=== PATIENT | female | born 1940 | race Caucasian/White ===

== ENCOUNTER → 2018-01-21 14:56 | Outpatient (CLI) | payer MEDICARE, OTHER, SELFPAY ==
[2018-01-21 15:26] LABS: INR 3.2 (1.0-3.5); Prothrombin Time 29.6 sec (9.3-10.8)
== END ==
PROVIDERS: PCP Nurse Practitioner Family; Visit Provider Nurse Practitioner Family
DX: I48.0 Paroxysmal atrial fibrillation (principal); Z79.01 Long term (current) use of anticoagulants
CPT/HCPCS: 36415; 85610

== ENCOUNTER → 2018-01-28 07:01 | Outpatient (CLI) | payer MEDICARE, OTHER, SELFPAY ==
[2018-01-28 07:58] LABS: INR 3.3 (1.0-3.5); Prothrombin Time 31.3 sec (9.3-10.8)
== END ==
PROVIDERS: PCP Nurse Practitioner Family; Visit Provider Nurse Practitioner Family
DX: I48.0 Paroxysmal atrial fibrillation (principal); Z79.01 Long term (current) use of anticoagulants
CPT/HCPCS: 36415; 85610

== ENCOUNTER → 2018-02-04 07:16 | Outpatient (CLI) | payer MEDICARE, OTHER, SELFPAY ==
[2018-02-04 07:54] LABS: INR 3.1 (1.0-3.5); Prothrombin Time 28.9 sec (9.3-10.8)
== END ==
PROVIDERS: PCP Nurse Practitioner Family; Visit Provider Nurse Practitioner Family
DX: I48.0 Paroxysmal atrial fibrillation (principal); Z79.01 Long term (current) use of anticoagulants
CPT/HCPCS: 36415; 85610

== ENCOUNTER 2018-02-18 07:11 | Outpatient (CLI) | payer MEDICARE, OTHER, SELFPAY ==
[2018-02-18 08:20] LABS: INR 1.9 (1.0-3.5); Prothrombin Time 18.2 sec (9.3-10.8)
== END 2018-02-18 07:31 ==
PROVIDERS: PCP Nurse Practitioner Family; Visit Provider Nurse Practitioner Family
DX: I48.0 Paroxysmal atrial fibrillation (principal); Z79.01 Long term (current) use of anticoagulants
CPT/HCPCS: 36415; 85610

== ENCOUNTER 2018-02-26 06:56 | Outpatient (CLI) | payer MEDICARE, OTHER, SELFPAY ==
[2018-02-26 07:52] LABS: INR 2.6 (1.0-3.5); Prothrombin Time 24.6 sec (9.3-10.8)
== END 2018-02-26 07:16 ==
PROVIDERS: PCP Nurse Practitioner Family; Visit Provider Nurse Practitioner Family
DX: I48.0 Paroxysmal atrial fibrillation (principal); Z79.01 Long term (current) use of anticoagulants
CPT/HCPCS: 36415; 85610

== ENCOUNTER 2018-03-26 10:48 | Outpatient (CLI) | payer MEDICARE, OTHER, SELFPAY ==
[2018-03-26 11:41] LABS: INR 2.2 (1.0-3.5); Prothrombin Time 21.2 sec (9.3-10.8)
== END 2018-03-26 11:08 ==
PROVIDERS: PCP Nurse Practitioner Family; Visit Provider Nurse Practitioner Family
DX: I48.0 Paroxysmal atrial fibrillation (principal); Z79.01 Long term (current) use of anticoagulants
CPT/HCPCS: 36415; 85610

== ENCOUNTER 2018-04-24 14:42 | Outpatient (CLI) | payer MEDICARE, OTHER, SELFPAY ==
[2018-04-24 16:16] LABS: INR 2.5 (1.0-3.5); Prothrombin Time 23.5 sec (9.3-10.8)
== END 2018-04-24 15:02 ==
PROVIDERS: PCP Nurse Practitioner Family; Visit Provider Nurse Practitioner Family
DX: I48.0 Paroxysmal atrial fibrillation (principal); Z79.01 Long term (current) use of anticoagulants
CPT/HCPCS: 36415; 85610

== ENCOUNTER 2018-04-29 15:29 | Outpatient (CLI) | payer MEDICARE, OTHER, SELFPAY ==
[2018-04-29 16:18] LABS: TSH 4.83 uIU/mL (0.358-3.74)
[2018-04-30 14:59] LABS: FREE T4 1.01 ng/dL (0.76-1.46)
== END 2018-04-29 15:49 ==
PROVIDERS: PCP Nurse Practitioner Family; Visit Provider Radiology Radiation Oncology
DX: E03.9 Hypothyroidism, unspecified (principal)
CPT/HCPCS: 36415; 84439; 84443

== ENCOUNTER 2018-09-27 10:57 | Outpatient (CLI) | payer MEDICARE, OTHER, SELFPAY ==
[2018-09-27 11:31] LABS: INR 2.5 (0.9-1.1); Prothrombin Time 25.7 sec (9.3-11.0)
[2018-09-27 12:39] LABS: FREE T4 1.31 ng/dL (0.76-1.46); TSH 2.14 uIU/mL (0.358-3.74)
== END 2018-09-27 11:17 ==
PROVIDERS: PCP Nurse Practitioner Family; Visit Provider Nurse Practitioner Family
DX: E03.9 Hypothyroidism, unspecified (principal); I48.0 Paroxysmal atrial fibrillation; Z79.01 Long term (current) use of anticoagulants
CPT/HCPCS: 36415; 84439; 84443; 85610

== ENCOUNTER 2018-10-28 15:39 | Outpatient (CLI) | payer MEDICARE, OTHER, SELFPAY ==
[2018-10-28 16:21] LABS: Prothrombin Time 20.2 sec (9.3-11.0)
[2018-10-28 17:20] LABS: BUN 20 mg/dL (7-18); CREATININE 1.02 mg/dL (0.55-1.02); Chloride 103 mmol/L (98-107); Cholesterol 139 mg/dL (50-200); Estimated GFR 52.14 (mL/min/1.73m2); Glucose 85 mg/dL (70-100); HDL Cholesterol 44 mg/dL (40-60); LDL CHOLESTEROL 78 mg/dL (<100); Potassium 3.8 mmol/L (3.5-5.1); Sodium 141 mmol/L (136-145); Triglyceride 76 mg/dL (30-150)
== END 2018-10-28 15:59 ==
PROVIDERS: PCP Nurse Practitioner Family; Visit Provider Nurse Practitioner Family
DX: E78.5 Hyperlipidemia, unspecified (principal); I48.0 Paroxysmal atrial fibrillation; Z79.01 Long term (current) use of anticoagulants
CPT/HCPCS: 36415; 80048; 80061; 83721; 85610

== ENCOUNTER 2018-11-20 14:53 | Observation (INO) | payer MEDICARE, OTHER, SELFPAY ==
[2018-11-20] VITALS (13 sets, daily range): BP systolic 136–177; BP diastolic 68–102; PULSE 55–69; RESP 14–21; TEMP 36.5–36.6; O2SAT 96–98
--- NOTE | 2018-11-20 16:00 | DI.RAD_ITS ---
SYMPTOM/DIAGNOSIS: PAIN, FALL LEFT LEG: Two views. No acute fracture or dislocation is present
--- NOTE | 2018-11-20 16:00 | DI.CT_ITS ---
SYMPTOM/DIAGNOSIS: FALL, COUMADIN CT BRAIN: Noncontrast examination. Comparison 01/02/18 The ventricle and sulci are consistent with the patient's age. There is small vessel ischemic disease. No acute intracranial infarct, hemorrhage, midline shift or mass effect is identified. The visualized paranasal sinuses are clear. The mastoid air cells are well pneumatized. The calvarium is intact. There is a left frontal scalp hematoma. IMPRESSION: No acute intracranial process. 2. Small moderate size left frontal scalp hematoma.
--- NOTE | 2018-11-20 16:02 | W.ED.GENAD ---
Discharge Plan Disposition Patient Disposition: HOME Discharge Details Chief Complaint: HeadInjury Clinical Impression: Fall, Head injury, Abrasion of left leg Primary Care Provider: Quin Angel ED Provider: Rommel Sullivan Home Meds and New Rx's Prescriptions: Continued losartan 50 mg tablet 50 mg PO DAILY Qty: 90 RF: 4 metoprolol tartrate 25 mg tablet 12.5 mg PO BID Qty: 90 RF: 4 simvastatin 20 mg tablet 20 mg PO DAILY Qty: 90 RF: 4 LINDSEY MAG ZINC + D TABLET 1 EACH tablet 1 ea PO DAILY RF: 0 levothyroxine [Synthroid] 50 mcg tablet 50 mcg PO DAILY Qty: 90 RF: 4 levothyroxine 25 mcg tablet 12.5 mcg PO DAILY Qty: 45 RF: 4 No Action warfarin 2.5 mg tablet 2.5 mg PO As Directed MDD 10mg/day Qty: 180 RF: 4 Discharge Instructions Referrals: Quin Angel, FIELD TRAFFIC INVESTIGATOR [Primary Care Provider] - Medical Decision Making 78-year-old female with history of atrial fibrillation on Coumadin here after mechanical fall with head trauma. Patient is hemodynamically stable. Heart rate within normal limits. Neurologically intact. Cervical spine is nontender with no pain on full range of motion. Considered acute life-threatening intracranial traumatic hemorrhage. CT of the head interpreted by radiology: No acute intracranial abnormality. Changes of an acute infarct may not be visible on CT from 224 to 48 hours. Labs reviewed and INR is elevated at 1.8 but this is in subtherapeutic range for her atrial fibrillation. Also with trauma to her left lower extremity. Considered fracture. X-ray interpreted by radiology is no acute findings. Patient does have abrasion to the area which was irrigated with copious sterile saline by nursing and myself, bacitracin applied and sterile dressing applied. Patient developed frontal headache 6/10 while here in the emergency department. She was given Tylenol 650 mg and headache has improved but is still present. On reassessment she remained neurologically intact. I called and spoke with Dr. Michelle duval who will admit the patient for observation and possible repeat imaging. HPI General Mode of arrival: ambulatory. Date/Time Provider Initiated Documentation: 11/20/18 15:20. Limitations to Documentation: no limitations. Information obtained by: patient. HPI Narrative: 78-year-old female history of atrial fibrillation on Coumadin here after mechanical fall, tripped over a hose, striking her head on the ground and also injuring her left lower leg. Her chief complaint is head trauma. She has a contusion with swelling of her left forehead. She denies loss of consciousness. No neck pain. No numbness or weakness. No visual changes. No nausea or vomiting. No headache at this time. She notes that she scraped her left leg but does not believe she significantly injured it. Related Data Home Medications Medication Instructions Recorded Confirmed Lindsey Mag Zinc + D Tablet 1 ea PO DAILY 10/03/17 11/20/18 losartan 50 mg tablet 50 mg PO DAILY #90 tab-cap 18 11/20/18 metoprolol tartrate 25 mg tablet 12.5 mg PO BID #90 tab-cap 04/02/18 11/20/18 simvastatin 20 mg tablet 20 mg PO DAILY #90 tab-cap 04/02/18 11/20/18 warfarin 2.5 mg tablet 2.5 mg PO As Directed #180 tab-cap 04/02/18 11/20/18 MDD 10mg/day levothyroxine 25 mcg tablet 12.5 mcg PO DAILY #45 tab 11/05/18 11/20/18 levothyroxine 50 mcg tablet 50 mcg PO DAILY #90 tab-cap 11/05/18 11/20/18 Previous Rx's Medication Instructions Recorded losartan 50 mg tablet 50 mg PO DAILY #90 tab-cap 04/02/18 metoprolol tartrate 25 mg tablet 12.5 mg PO BID #90 tab-cap 04/02/18 simvastatin 20 mg tablet 20 mg PO DAILY #90 tab-cap 04/02/18 warfarin 2.5 mg tablet 2.5 mg PO As Directed #180 tab-cap 04/02/18 MDD 10mg/day levothyroxine 25 mcg tablet 12.5 mcg PO DAILY #45 tab 11/05/18 levothyroxine 50 mcg tablet 50 mcg PO DAILY #90 tab-cap 11/05/18 Allergies Allergy/AdvReac Type Severity Reaction Status Date / Time No Known Allergies Allergy Unverified 11/20/18 15:07 General Stated Complaint: HeadInjury THELMA: 3 Review of Systems Review of Systems All systems reviewed & are unremarkable except as noted in HPI and below [facility] Medical History PAF (paroxysmal atrial fibrillation) (Chronic 2016) Chronic anticoagulation (Inactive) Hypertension (Chronic) Chronic kidney disease (Chronic) Hyperlipidemia (Chronic) Hypothyroidism (Chronic 03/05/17) LBBB (left bundle branch block) (Inactive 11/29/15) Osteoporosis (Inactive) Sensorineural hearing loss (SNHL), bilateral (Inactive) Sigmoid diverticulosis (Inactive) Squamous cell carcinoma of neck (Inactive ~09/2015) Surgical History Cholecystectomy (Inactive ~1988) Colonoscopy - MAC (Inactive ~2009) Dilation and curettage (Inactive ~1977) Hysterectomy, Laproscopic (Inactive ~1978) Ligation of fallopian tube (Inactive ~1967) Skin Cancer Removal (Inactive 12/15/15) Family History Mother Essential hypertension Father Alcohol abuse Sister No problems noted. Sister No problems noted. Brother No problems noted. Brother No problems noted. Brother Epilepsy Brother No problems noted. Son No problems noted. Son No problems noted. Son No problems noted. Daughter No problems noted. Maternal Grandfather No problems noted. Maternal Grandmother Chronic obstructive lung disease Essential hypertension Paternal Grandfather No problems noted. Paternal Grandmother No problems noted. Social History Smoking/Tobacco Use Status: Never Second Hand Exposure: Yes (Prior to 2007) Alcohol Intake: current Alcohol Intake frequency: a few times a month Drug use: Never Substance use type: does not use Caregiver/Support person: No Household members: none Communication Needs: Hard of Hearing Pets and animals: No Sexually active: No Do you think of yourself as: straight/heterosexual Current gender identity: female What is your relationship status?: How often do you talk on the phone with friends or family?: three or more times per week How often do you get together with friends or relatives?: three or more times per week How often do you attend pentecostal or religion services?: 4 or more times per year Do you belong to any clubs or organized social groups?: no Panel score (0-1 are the most socially isolated patients): 2 What type of physical activity do you participate in: walking and swimming Duration: 45-60 minutes/day Frequency: 5-6 times per week Malia/Cheondoism: Scientology Special malia needs: No Seatbelt use: always Drive intox or ride w/intox hazardous materials tanker driver: No Do you feel safe in your relationship?: Yes Female Reproductive History Menstrual Menopause type: surgical History History 4 Para 4 Hx # Term Pregnancies Multiple births Hx # Pregnancies Ectopic pregnancies AB induced Hx Number of Living Children 4 AB spontaneous Exam Const General: cooperative and no acute distress HENMT Head: no Guthrie's sign, hematoma left frontal, no palpable skull fracture and No periorbital ecchymosis Ears: TM normal on the left General nose exam: external nose normal Mouth: moist mucous membranes Eyes Conjunctivae: normal conjunctivae Sclera: normal sclerae EOM: EOM intact bilaterally Neck Neck: full ROM, trachea midline, supple, no midline deformity and nontender Resp Auscultation: clear to auscultation bilaterally, no rales, no rhonchi and no wheezes Cardio Jugular venous pressure: no JVD Rate: regular rate and not tachycardic Rhythm: regular rhythm GI Palpation: soft, not firm, no guarding, no masses, not rigid and nontender Back/Spine/Pelvis Pelvis: no pain with anterior-posterior compression and no pain with lateral compression Skin General skin exam: no rashes or lesions noted Neuro General: alert, awake, oriented x3 and tone normal Cranial Nerves: CN's II-XI intact bilaterally Cognition: normal cognition Speech: speech normal Gait: normal gait Motor: muscle tone normal throughout Sensory Exam: no sensory deficits noted Extrem General: no edema Left lower extremity: lower leg Details: tenderness Location: of the proximal tibia Psych Appearance: grossly normal Mental Status: mental status grossly normal Speech and Movement: speech and movement normal Course Vital Signs Temperature 36.6 C 11/20/18 15:04 Pulse 69 11/20/18 15:04 Respiratory Rate 16 11/20/18 15:04 Blood Pressure 136/73 11/20/18 15:04 Pulse Oximetry 98 11/20/18 15:04 Temperature 36.6 C 11/20/18 15:04 Temperature Source Skin 11/20/18 15:04 Pulse 69 11/20/18 15:04 Respiratory Rate 16 11/20/18 15:04 Respiratory Effort Non-Labored 11/20/18 15:28 Respiratory Depth Normal 11/20/18 15:28 Respiratory Pattern Normal 11/20/18 15:28 Blood Pressure 136/73 11/20/18 15:04 Blood Pressure Position Supine 11/20/18 15:04 Pulse Oximetry 98 11/20/18 15:04 Oxygen Delivery Method Room Air 11/20/18 15:04 Oxygen Flow Rate 0 11/20/18 15:04 Pain Level 0 11/20/18 15:04
[2018-11-20 16:37] LABS: INR 1.8 (0.9-1.1); Prothrombin Time 18.5 sec (9.3-11.0)
[2018-11-20] MEDS: Acetaminophen 325 MG TAB 650 MG PO (17:10)
--- NOTE | 2018-11-20 17:12 | DI.VRAD_ITS ---
EXAM: XR Left Tibia and Fibula EXAM DATE/TIME: 11/20/2018 4:02 PM CLINICAL HISTORY: 78 years old, female; Injury or trauma; Fall; Initial encounter; Abrasion and blunt trauma; Lower leg; Left; Right TECHNIQUE: Imaging protocol: XR Left tibia and fibula. Views: 2 views. COMPARISON: No relevant prior studies available. FINDINGS: Bones/joints: Normal. Soft tissues: Normal. IMPRESSION: No acute findings. Dictated and Authenticated by: Raza Chi MD. Ordering:ADELA Carney MD
--- NOTE | 2018-11-20 17:24 | DI.VRAD_ITS ---
EXAM: CT Head Without Contrast EXAM DATE/TIME: 11/20/2018 4:02 PM CLINICAL HISTORY: 78 years old, female; Injury or trauma; Fall TECHNIQUE: Imaging protocol: Axial computed tomography images of the head without contrast. Coronal and sagittal reformatted images were created and reviewed. COMPARISON: CT HEAD AND CSPINE W/O CONTRAST 01/12/2018 1:52 PM FINDINGS: Brain: Mild small vessel ischemic changes in the periventricular white matter. No evidence of an acute cortical infarct. Ventricles: Normal. No ventriculomegaly. Bones/joints: Unremarkable. No acute fracture. Sinuses: Visualized sinuses are unremarkable. No fluid levels. Mastoid air cells: Visualized mastoid air cells are well aerated. No mastoid effusion. Soft tissues: Left frontal soft tissue swelling. IMPRESSION: No acute intracranial abnormality. Changes of an acute infarct may not be visible on CT for up to 24 to 48 hours. Dictated and Authenticated by: Raza Chi MD. Ordering:ADELA Carney MD
--- NOTE | 2018-11-20 17:52 | ED.GENADUL_ITS ---
Discharge Plan Disposition Patient Disposition: HOME Discharge Details Chief Complaint: HeadInjury Clinical Impression: Fall, Head injury, Abrasion of left leg Primary Care Provider: Quin Angel ED Provider: Rommel Sullivan Home Meds and New Rx's Prescriptions: Continued losartan 50 mg tablet 50 mg PO DAILY Qty: 90 RF: 4 metoprolol tartrate 25 mg tablet 12.5 mg PO BID Qty: 90 RF: 4 simvastatin 20 mg tablet 20 mg PO DAILY Qty: 90 RF: 4 LINDSEY MAG ZINC + D TABLET 1 EACH tablet 1 ea PO DAILY RF: 0 levothyroxine [Synthroid] 50 mcg tablet 50 mcg PO DAILY Qty: 90 RF: 4 levothyroxine 25 mcg tablet 12.5 mcg PO DAILY Qty: 45 RF: 4 No Action warfarin 2.5 mg tablet 2.5 mg PO As Directed MDD 10mg/day Qty: 180 RF: 4 Discharge Instructions Referrals: Quin Angle, SULKY DRIVER [Primary Care Provider] - Medical Decision Making 78-year-old female with history of atrial fibrillation on Coumadin here after mechanical fall with head trauma. Patient is hemodynamically stable. Heart rate within normal limits. Neurologically intact. Cervical spine is nontender with no pain on full range of motion. Considered acute life-threatening intracranial traumatic hemorrhage. CT of the head interpreted by radiology: No acute intracranial abnormality. Changes of an acute infarct may not be visible on CT from 224 to 48 hours. Labs reviewed and INR is elevated at 1.8 but this is in subtherapeutic range for her atrial fibrillation. Also with trauma to her left lower extremity. Considered fracture. X-ray interpreted by radiology is no acute findings. Patient does have abrasion to the area which was irrigated with copious sterile saline by nursing and myself, bacitracin applied and sterile dressing applied. Patient developed frontal headache 6/10 while here in the emergency department. She was given Tylenol 650 mg and headache has improved but is still present. On reassessment she remained neurologically intact. I called and spoke with Dr. Michelle duval who will admit the patient for observation and possible repeat imaging. HPI General Mode of arrival: ambulatory . Date/Time Provider Initiated Documentation: 11/20/18 15:20 . Limitations to Documentation: no limitations . Information obtained by: patient . HPI Narrative: 78-year-old female history of atrial fibrillation on Coumadin here after mechanical fall, tripped over a hose, striking her head on the ground and also injuring her left lower leg. Her chief complaint is head trauma. She has a contusion with swelling of her left forehead. She denies loss of consciousness. No neck pain. No numbness or weakness. No visual changes. No nausea or vomiting. No headache at this time. She notes that she scraped her left leg but does not believe she significantly injured it. Related Data Home Medications Medication Instructions Recorded Confirmed Lindsey Mag Zinc + D Tablet 1 ea PO DAILY 10/03/17 11/20/18 losartan 50 mg tablet 50 mg PO DAILY #90 tab-cap 18 11/20/18 metoprolol tartrate 25 mg tablet 12.5 mg PO BID #90 tab-cap 04/02/18 11/20/18 simvastatin 20 mg tablet 20 mg PO DAILY #90 tab-cap 04/02/18 11/20/18 warfarin 2.5 mg tablet 2.5 mg PO As Directed #180 tab-cap 04/02/18 11/20/18 MDD 10mg/day levothyroxine 25 mcg tablet 12.5 mcg PO DAILY #45 tab 11/05/18 11/20/18 levothyroxine 50 mcg tablet 50 mcg PO DAILY #90 tab-cap 11/05/18 11/20/18 Previous Rx's Medication Instructions Recorded losartan 50 mg tablet 50 mg PO DAILY #90 tab-cap 04/02/18 metoprolol tartrate 25 mg tablet 12.5 mg PO BID #90 tab-cap 04/02/18 simvastatin 20 mg tablet 20 mg PO DAILY #90 tab-cap 04/02/18 warfarin 2.5 mg tablet 2.5 mg PO As Directed #180 tab-cap 04/02/18 MDD 10mg/day levothyroxine 25 mcg tablet 12.5 mcg PO DAILY #45 tab 11/05/18 levothyroxine 50 mcg tablet 50 mcg PO DAILY #90 tab-cap 11/05/18 Allergies Allergy/AdvReac Type Severity Reaction Status Date / Time No Known Allergies Allergy Unverified 11/20/18 15:07 General Stated Complaint: HeadInjury THELMA: 3 Review of Systems Review of Systems All systems reviewed & are unremarkable except as noted in HPI and below [facility] Medical History PAF (paroxysmal atrial fibrillation) (Chronic 2016) Chronic anticoagulation (Inactive) Hypertension (Chronic) Chronic kidney disease (Chronic) Hyperlipidemia (Chronic) Hypothyroidism (Chronic 03/05/17) LBBB (left bundle branch block) (Inactive 11/29/15) Osteoporosis (Inactive) Sensorineural hearing loss (SNHL), bilateral (Inactive) Sigmoid diverticulosis (Inactive) Squamous cell carcinoma of neck (Inactive ~09/2015) Surgical History Cholecystectomy (Inactive ~1988) Colonoscopy - MAC (Inactive ~2009) Dilation and curettage (Inactive ~1977) Hysterectomy, Laproscopic (Inactive ~1978) Ligation of fallopian tube (Inactive ~1967) Skin Cancer Removal (Inactive 12/15/15) Family History Mother Essential hypertension Father Alcohol abuse Sister No problems noted. Sister No problems noted. Brother No problems noted. Brother No problems noted. Brother Epilepsy Brother No problems noted. Son No problems noted. Son No problems noted. Son No problems noted. Daughter No problems noted. Maternal Grandfather No problems noted. Maternal Grandmother Chronic obstructive lung disease Essential hypertension Paternal Grandfather No problems noted. Paternal Grandmother No problems noted. Social History Smoking/Tobacco Use Status: Never Second Hand Exposure: Yes (Prior to 2007) Alcohol Intake: current Alcohol Intake frequency: a few times a month Drug use: Never Substance use type: does not use Caregiver/Support person: No Household members: none Communication Needs: Hard of Hearing Pets and animals: No Sexually active: No Do you think of yourself as: straight/heterosexual Current gender identity: female What is your relationship status?: How often do you talk on the phone with friends or family?: three or more times per week How often do you get together with friends or relatives?: three or more times per week How often do you attend islam or jew services?: 4 or more times per year Do you belong to any clubs or organized social groups?: no Panel score (0-1 are the most socially isolated patients): 2 What type of physical activity do you participate in: walking and swimming Duration: 45-60 minutes/day Frequency: 5-6 times per week Malia/Pentecostal: L[employer] Day Special malia needs: No Seatbelt use: always Drive intox or ride w/intox driver medic: No Do you feel safe in your relationship?: Yes Female Reproductive History Menstrual Menopause type: surgical History History 4 Para 4 Hx # Term Pregnancies Multiple births Hx # Pregnancies Ectopic pregnancies AB induced Hx Number of Living Children 4 AB spontaneous Exam Const General: cooperative and no acute distress HENMT Head: no Guthrie's sign, hematoma left frontal, no palpable skull fracture and No periorbital ecchymosis Ears: TM normal on the left General nose exam: external nose normal Mouth: moist mucous membranes Eyes Conjunctivae: normal conjunctivae Sclera: normal sclerae EOM: EOM intact bilaterally Neck Neck: full ROM, trachea midline, supple, no midline deformity and nontender Resp Auscultation: clear to auscultation bilaterally, no rales, no rhonchi and no wheezes Cardio Jugular venous pressure: no JVD Rate: regular rate and not tachycardic Rhythm: regular rhythm GI Palpation: soft, not firm, no guarding, no masses, not rigid and nontender Back/Spine/Pelvis Pelvis: no pain with anterior-posterior compression and no pain with lateral compression Skin General skin exam: no rashes or lesions noted Neuro General: alert, awake, oriented x3 and tone normal Cranial Nerves: CN's II-XI intact bilaterally Cognition: normal cognition Speech: speech normal Gait: normal gait Motor: muscle tone normal throughout Sensory Exam: no sensory deficits noted Extrem General: no edema Left lower extremity: lower leg Details: tenderness Location: of the proximal tibia Psych Appearance: grossly normal Mental Status: mental status grossly normal Speech and Movement: speech and movement normal Course Vital Signs Temperature 36.6 C 11/20/18 15:04 Pulse 69 11/20/18 15:04 Respiratory Rate 16 11/20/18 15:04 Blood Pressure 136/73 11/20/18 15:04 Pulse Oximetry 98 11/20/18 15:04 Temperature 36.6 C 11/20/18 15:04 Temperature Source Skin 11/20/18 15:04 Pulse 69 11/20/18 15:04 Respiratory Rate 16 11/20/18 15:04 Respiratory Effort Non-Labored 11/20/18 15:28 Respiratory Depth Normal 11/20/18 15:28 Respiratory Pattern Normal 11/20/18 15:28 Blood Pressure 136/73 11/20/18 15:04 Blood Pressure Position Supine 11/20/18 15:04 Pulse Oximetry 98 11/20/18 15:04 Oxygen Delivery Method Room Air 11/20/18 15:04 Oxygen Flow Rate 0 11/20/18 15:04 Pain Level 0 11/20/18 15:04
[2018-11-20] MEDS: Metoprolol 25 MG TAB 12.5 MG PO (20:03)
[2018-11-20] MEDS: Acetaminophen 325 MG TAB PO (20:06)
--- NOTE | 2018-11-20 20:50 | W.PM.HP.N ---
Date of service: 11/20/18 Time of Service: 20:50 Assessment and Plan (1) Closed head injury without loss of consciousness: Current visit: Yes Status: Acute patient sustained a mechanical fall w/out loss of consciousness and no skull fracture thus making the risk of a subdural hematoma less likely, nevertheless because of the subsequent headache to the fall; the patient should be closely monitored overnight w/ frequent VS and neurochecks. I have held her warfarin for tonight. She can resume her usual dose tomorrow if she remains neurologically stable. I have ordered repeat CT of her head for the a.m. per Dr. Sullivan's recommendation. If she developes worsening headaches, or nausea or other focal neurologic symptoms tonight, then I will repeat her CT tonight. I advised the patient on signs and symptoms of ICH and increased intracranial pressure and to report any symptoms immediately. Qualifiers: Encounter type: initial encounter Qualified Code(s): S09.90XA - Unspecified injury of head, initial encounter (2) Scalp contusion: Current visit: Yes Status: Acute local treatment w/ ice compresses. Qualifiers: Encounter type: initial encounter Qualified Code(s): S00.03XA - Contusion of scalp, initial encounter (3) Tick bite of left lower leg: Current visit: Yes Status: Acute patient showed me this incidental to her reasons for hospitalization. The insect bite appears to be pin point w/ no target or bull's eye appearance and no surrounding erythema or induration. As the tick was on her less than 24 hrs, there is no indication for doxycycline prophylaxis. However, I advised the patient to keep watch on the area and if there is increased redness or swelling or target like lesion then she should report this. Qualifiers: Encounter type: initial encounter Qualified Code(s): S80.862A - Insect bite (nonvenomous), left lower leg, initial encounter; W57.XXXA - Bitten or stung by nonvenomous insect and other nonvenomous arthropods, initial encounter (4) PAF (paroxysmal atrial fibrillation): Current visit: No Status: Chronic heart rate is regular but bradycardic in the 50's. She is on metoprolol chronically to control her afib rate. She did not have an EKG done in the ER and was not placed on telemetry. She has no symptoms of palpitations nor any syncope, therefore she is not being evaluated for her heart rhythm. She has known PAF and as she is on a BB, the bradycardia is not a surprise. Her warfarin is being held tonight d/t her closed head injury/scalp hematoma. I will repeat her INR tomorrow and if she remains neurologically intact and there is no change in her CT of her head then she can go back on her warfarin with close follow up of her INR. (5) Hypertension: Current visit: No Status: Chronic continue her losartan and her metoprolol. Qualifiers: Hypertension type: essential hypertension Qualified Code(s): I10 - Essential (primary) hypertension History of Present Illness Chief Complaint: fell, hit head Narrative: 78-year-old female with a history of essential hypertension, chronic atrial fibrillation on anticoagulation with warfarin presented to the emergency department brought here by her [id number] after the patient sustained a fall. Patient states that she tripped over sump pump drain hose that her son had placed to drain her pool in preparation for opening up her swimming pool for the summer season. Patient denies any loss of consciousness. Soon after the fall she did sustain a large bruise of her forehead and abrasion over her left adrian. She complained of a headache and was evaluated emergency department by Dr. Rommel Sullivan who performed CT scan of her head without contrast. CT of her head showed mild small vessel ischemic changes in the periventricular white matter but no evidence of acute intracranial abnormalities. She has a small left frontal soft tissue swelling. He also ordered an x-ray of her left tibia and fibula which showed no acute findings. He perform routine laboratory studies including a CBC that was normal prothrombin time which was elevated but below therapeutic levels with an INR 1.8. And routine chemistries that were unremarkable. Because of the complaints of headache she was treated with Tylenol which improved her headache but did not totally resolve it. Because of her being on anticoagulation and sustaining soft tissue trauma to her head Dr. Sullivan recommend observation overnight with frequent neuro checks to assess for any overnight development of a subdural bleed. He also recommend a repeat CT scan of her head in the morning. Patient denies any acute visual scotomata nor any paresthesias or paraparesis no nausea or emesis. Her headache after the fall she rated a 6 out of 10 in severity and was a severe ache but was improved with Tylenol. Since being admitted headache is gone down to a 3 out of 10 and his receive further Tylenol with improvement in her headache. Review of Systems Constitutional Reports system reviewed and no additional complaints, except as docu, Denies frequent falls, Reports headache(s) and Denies weakness ENT Denies dizziness, Reports headache(s) and Denies disequilibrium Cardiovascular Denies chest pain, Denies syncope, Denies lightheadedness, Denies palpitations and Denies dyspnea Respiratory Denies dyspnea Integumentary/Breasts Reports other (patient states she had a tick bite over left lower leg, present for <1day) Neurologic Denies confusion, Denies dizziness, Denies syncope, Denies frequent falls, Reports headache(s), Denies lack of coordination, Denies focal weakness, Denies other visual disturbances, Denies paresthesias, Denies disequilibrium and Denies weakness Psychiatric Denies confusion Endocrine Denies palpitations [facility] Medical History PAF (paroxysmal atrial fibrillation) (Chronic 2016) Chronic anticoagulation (Chronic) Hypertension (Chronic) Chronic kidney disease (Chronic) Hyperlipidemia (Chronic) Hypothyroidism (Chronic 03/05/17) LBBB (left bundle branch block) (Chronic 11/29/15) Osteoporosis (Chronic) Sensorineural hearing loss (SNHL), bilateral (Chronic) Sigmoid diverticulosis (Chronic) Squamous cell carcinoma of neck (Inactive ~09/2015) Surgical History Cholecystectomy (Inactive ~1988) Colonoscopy - MAC (Inactive ~2009) Dilation and curettage (Inactive ~1977) Hysterectomy, Laproscopic (Inactive ~1978) Ligation of fallopian tube (Inactive ~1967) Skin Cancer Removal (Inactive 12/15/15) Family History Mother Essential hypertension Father Alcohol abuse Sister No problems noted. Sister No problems noted. Brother No problems noted. Brother No problems noted. Brother Epilepsy Brother No problems noted. Son No problems noted. Son No problems noted. Son No problems noted. Daughter No problems noted. Maternal Grandfather No problems noted. Maternal Grandmother Chronic obstructive lung disease Essential hypertension Paternal Grandfather No problems noted. Paternal Grandmother No problems noted. Social History Smoking/Tobacco Use Status: Never Second Hand Exposure: Yes (Prior to 2007) Alcohol Intake: current Alcohol Intake frequency: a few times a month Drug use: Never Substance use type: does not use Caregiver/Support person: No Household members: none Communication Needs: Hard of Hearing Pets and animals: No Sexually active: No Do you think of yourself as: straight/heterosexual Current gender identity: female What is your relationship status?: How often do you talk on the phone with friends or family?: three or more times per week How often do you get together with friends or relatives?: three or more times per week How often do you attend taoist or episcopal services?: 4 or more times per year Do you belong to any clubs or organized social groups?: no Panel score (0-1 are the most socially isolated patients): 2 What type of physical activity do you participate in: walking and swimming Duration: 45-60 minutes/day Frequency: 5-6 times per week Malia/Uatsdin: [facility] Special malia needs: No Seatbelt use: always Drive intox or ride w/intox route sales delivery driver: No Do you feel safe in your relationship?: Yes Female Reproductive History Menstrual Menopause type: surgical History History 4 Para 4 Hx # Term Pregnancies Multiple births Hx # Pregnancies Ectopic pregnancies AB induced Hx Number of Living Children 4 AB spontaneous Meds Home Medications Medication Instructions Recorded Confirmed Type Jose Mag Zinc + D Tablet 1 ea PO DAILY 10/03/17 11/20/18 History losartan 50 mg tablet 50 mg PO DAILY #90 tab-cap 04/02/18 11/20/18 Rx metoprolol tartrate 25 mg tablet 12.5 mg PO BID #90 tab-cap 04/02/18 11/20/18 Rx simvastatin 20 mg tablet 20 mg PO DAILY #90 tab-cap 04/02/18 11/20/18 Rx warfarin 2.5 mg tablet 2.5 mg PO As Directed #180 tab-cap 04/02/18 11/20/18 Rx MDD 10mg/day levothyroxine 25 mcg tablet 12.5 mcg PO DAILY #45 tab 11/05/18 11/20/18 Rx levothyroxine 50 mcg tablet 50 mcg PO DAILY #90 tab-cap 11/05/18 11/20/18 Rx Allergies Allergy/AdvReac Type Severity Reaction Status Date / Time No Known Allergies Allergy Unverified 11/20/18 15:07 Exam Const General: cooperative, comfortable, no acute distress and well groomed Nutritional Appearance: average body habitus and well nourished Orientation: alert, awake and oriented x3 [facility] Head: no palpable skull fracture, normocephalic, abrasion left frontal, hematoma left frontal and No periorbital ecchymosis General nose exam: external nose normal, nares normal and no nasal discharge Eyes General: appearance normal, both eyes and all related structures Visual Thomas: normal visual thomas by confrontation Alignment and Position: alignment normal Periorbital: periorbital findings normal Eyelids: eyelids normal Conjunctivae: conjunctivae normal Sclera: sclerae normal Cornea: corneas normal Pupils: PERRL, normal by confrontation and accommodation normal EOM: EOM intact bilaterally Neck Neck: normal visual inspection, full ROM, no lymphadenopathy, trachea midline, supple and no JVD Thyroid: thyroid normal Carotids: normal carotid upstroke and no bruits Lymphatic: no lymphadenopathy noted Chest Chest: normal inspection of the chest and normal palpation of entire chest wall Resp Effort & Inspection: normal respiratory effort and able to speak in complete sentences Auscultation: clear to auscultation bilaterally Percussion: percussion normal Cardio Jugular venous pressure: no JVD Palpation: normal PMI Rate: bradycardic Rhythm: regular rhythm Heart Sounds: S1 normal, S2 normal and normal, physiologic split S2 Pulses: normal peripheral pulses GI Inspection: normal to inspection Palpation: soft, no hepatosplenomegaly and nontender Percussion: normal to percussion Auscultation: normal bowel sounds Back/Spine/Pelvis Cervical Spine: normal cervical lordosis and cervical ROM normal Thoracic/Lumbar Spine: thoracic and lumbar spine normal to inspection and thoraco-lumbar ROM normal Skin General skin exam: no rashes or lesions noted, elasticity normal and turgor normal Trauma: abrasion (left anterior tibia) Other: small pinpoint insect bite over left lower medial tibia, area that patient states was a tick bite Neuro General: alert, awake, oriented x3, moves all extremities and no focal motor deficits Cranial Nerves: CN's II-XI intact bilaterally, PERRL, accommodation normal, EOM intact bilaterally, no nystagmus, facial strength normal, tongue midline, gag reflex normal, hearing normal, able to rotate head bilaterally, able to elevate shoulders bilaterally and Symmetric palate elevation Cognition: normal cognition Speech: speech normal Gait: normal gait Motor: muscle tone normal throughout, strength 5/5 throughout, no movement abnormalities noted and no fasciculations Sensory Exam: no sensory deficits noted Extrem General: normal to inspection, full ROM, normal capillary refill, no joint enlargement, no clubbing, cyanosis or edema and no calf tenderness bilaterally Psych Appearance: grossly normal and well kempt Mental Status: mental status grossly normal Speech and Movement: speech and movement normal Mood: congruent mood Affect: normal affect Attitude: cooperative Thought Process: normal Thought Content: normal Insight: insight good Judgment: judgment good Results Labs Laboratory Results - last 24 hr 11/20/18 16:10 PT 18.5 H INR 1.8 H Last Vital Signs Temp 36.6 C 11/20/18 19:08 Pulse 55 L 11/20/18 19:08 Resp 18 11/20/18 19:08 BP 165/84 H 11/20/18 19:08 Pulse Ox 98 11/20/18 19:08
[2018-11-21] VITALS (8 sets, daily range): BP systolic 140–162; BP diastolic 78–88; PULSE 41–60; RESP 16–18; TEMP 36.9–37.2; O2SAT 97–99
[2018-11-21] MEDS: Levothyroxine 25 MCG TAB 12.5 MCG PO (06:10)
[2018-11-21] MEDS: Acetaminophen 325 MG TAB PO (06:10)
[2018-11-21] MEDS: Levothyroxine 50 MCG TAB PO (06:16)
--- NOTE | 2018-11-21 07:00 | DI.CT_ITS ---
SYMPTOM/DIAGNOSIS: CLOSED HEAD INJURY, FRONTAL HEMATOMA, HEADACHE CT BRAIN: Noncontrast. Comparison 11/20/18 No acute intracranial hemorrhage, midline shift or mass effect is identified. There is age appropriate cerebral atrophy and small vessel ischemic disease. There is again seen a scalp hematoma overlying the left frontal bone. No calvarial fracture is seen. The visualized paranasal sinuses remain clear. IMPRESSION: 1. No acute intracranial hemorrhage or skull fracture. 2. Left frontal scalp hematoma.
[2018-11-21 07:37] LABS: Prothrombin Time 18.6 sec (9.3-11.0)
[2018-11-21 07:42] LABS: INR 1.8 (0.9-1.1)
--- NOTE | 2018-11-21 09:30 | PDOC.CMIN ---
Care Management Initial Assess REASON FOR HOSPITALIZATION:: closed head injury without loss of consciousness, frontal hematoma. PAST MEDICAL HISTORY/PAST SURGICAL HISTORY:: Medical: chronic PAF, chronic anticoagulation, HTN, CKD, hyperlipidemia, hypothyroidism, LBBB, osteoporosis, sensorineural hearing loss, sigmoid diverticulosis, squamous cell carcinoma of neck. Surgical: cholecystectomy, colonoscopy, D&C, hysterectomy, ligation of fallopian tube, skin Ca removal. PREVIOUS FUNCTIONAL STATUS/SOCIAL/FAMILY SUPPORTS:: She is 78 yo who lives alone in her own home in [facility]. She spends about 4-5 months in [place] during the winter, and 6-7 months in [place] during other seasons. She has four adult children, 3 sons and a daughter, 7 grandchildren and 10 great grandchildren. She is usually very active and independent, and still drives some of time. CURRENT FUNCTIONAL STATUS:: She is able to ambulate in room with standby assist. No device needed. She easily engages in discussion re plans, and makes point to say she is very independent-minded woman. ADVANCE DIRECTIVES:: She has a document that names her daughter, Ema, as her agent. It is not on file at [facility], but she will make sure she brings a copy after d/c home. Has patient been provided with information about the portal?: Yes Did the patient sign up for the portal?: No INSURANCE COVERAGE / FINANCIAL ISSUES:: Medicare. Edith malloy Gardner CURRENT HOME/COMMUNITY SERVICES/EQUIPMENT:: No services or equipment used. PRIMARY CARE PHYSICIAN:: Quin Angel NP POTENTIAL DISCHARGE NEEDS:: She will need follow-up with PCP as directed. PATIENT/FAMILY EDUCATION NEEDS:: Review d/c instructions re meds and activity levels. Review Ask me Now questions. ANTICIPATED BARRIERS TO DISCHARGE:: none identified TRANSPORTATION:: via car with her daughter, Ema. PLAN:: d/c home as per MD, no services anticipated.
--- NOTE | 2018-11-21 10:31 | PHARADMIT ---
Admission Pharmacy Clinical Review closed head injury, frontal Code Status Full Code Current Weight Wgt- 69.2 kg Renally Cleared and Narrow Therapeutic Index Meds CrCl~ 39.5 mL/min Meds-OK QTc Value / Action Taken none current BP Control, Fever BP- 162/86 Tmax- 37C Electrolytes reviewed na DVT Prophylaxis Warfarin Held due to head injury Opiate Usage / Scheduled Bowel Regimen Ordered No Yes Plt/SCr for Heparin / Enoxaparin na INR for Warfarin inr-1.8 H/H stable, WBC/Bands na Antibiotic appropriateness none Cultures and Sensitivities na Surgical ABX d/c within 24 hr na DM control / Insulin Dosing NA Heart Failure (Check EF%) (MARTIN's, B-Block, Diuretics) Losartan, Lopressor IV to PO Switch No Home Meds Reviewed Yes Home Meds Not Ordered Ca,Mag,Zinc, Lasix, Warfarin Comments
[2018-11-21 11:46] LABS: Abs Immature Grans 0.01 k/cumm (0.0-0.09); Absolute Basophil Count 0.08 k/cumm (0.0-0.2); Absolute Eosinophil Count 0.17 k/cumm (0.0-0.7); Absolute Lymphocyte Count 1.14 k/cumm (1.2-3.4); Absolute Monocyte Count 0.54 k/cumm (0.11-0.7); Absolute Neutrophil Count 3.21 k/cumm (1.2-6.7); Basophils % 1.6; Eosinophils % 3.3; HCT 37.7 % (36.0-46.0); HGB 12.3 g/dL (12.0-15.5); Immature Grans % 0.2; Lymphocytes % 22.1; Mean Corp. HGB Concentration 32.6 g/dL (32.0-36.0); Mean Corpuscular Hemoglobin 30.6 pg (27.0-33.0); Mean Corpuscular Volume 93.8 fL (80-95); Mean Platelet Volume 10.1 fL (8.0-11.0); Monocytes % 10.5; Neutrophils % 62.3; Platelet Count 239 x1000/uL (130-400); RBC 4.02 m/cumm (4.00-5.20); RBC Distribution Width 12.9 % (11.7-14.6); White Blood Cell Count 5.15 k/cumm (4.4-10.8)
[2018-11-21 11:56] LABS: Anion Gap 6.8 mmol/L (3-11); BUN 17 mg/dL (7-18); CO2 29.2 mmol/L (21.0-32.0); CREATININE 0.96 mg/dL (0.55-1.02); Calcium 8.1 mg/dL (8.5-10.1); Chloride 105 mmol/L (98-107); Estimated GFR 55.92 (mL/min/1.73m2); Glucose 105 mg/dL (70-100); Magnesium 2.1 mg/dL (1.8-2.4); Potassium 4.1 mmol/L (3.5-5.1); Sodium 141 mmol/L (136-145)
[2018-11-21 12:12] LABS: Troponin I < 0.02 ng/mL (0.00-0.06)
--- NOTE | 2018-11-21 12:16 | IN_ITS ---
Date of service: 11/21/18 Time of Service: 11:45 PT Notes Inpatient Physical Therapy Evaluation Date: 11/21/18 Referring Doctor: Dr. Fitzpatrick PT Orders: PT CONSULT: s/p fall- eval and treat Precautions: fall, standard Patient Profile/Admitting Diagnosis: Patient admitted 11/20/18 after mechanical fall at home without LOC. PMHX: PAF (paroxysmal atrial fibrillation) (Chronic 2016) Chronic anticoagulation (Chronic) Hypertension (Chronic) Chronic kidney disease (Chronic) Hyperlipidemia (Chronic) Hypothyroidism (Chronic 03/05/17) LBBB (left bundle branch block) (Chronic 11/29/15) Osteoporosis (Chronic) Sensorineural hearing loss (SNHL), bilateral (Chronic) Sigmoid diverticulosis (Chronic) Squamous cell carcinoma of neck (Inactive ~09/2015) Social History/Home Situation: Patient lives in single level home with a flight of stairs to her basement, which she states that she does not use regularly. She is an avid walker, typically walking 2 miles per day. She king in [place], and typically swims daily. Equipment Owned/DME: none Subjective: Patria states that she is feeling fine. She's anxious to be released home. She states that her fall occurred while she was trying to operate a sump pump, and she tripped over a large pipe in her yard. Only previous fall was 2 years ago when a porch swing broke as she sat down to it. Objective: General Observation: Resting in bed. No lines. Mental Status: A&Ox3. Pleasant and conversant. Pain: denies ROM: Right Upper Extremity: WFL Left Upper Extremity: WFL Right Lower Extremity: WFL Left Lower Extremity: WFL Strength: Right Upper Extremity: Grossly WFL Left Upper Extremity: Grossly WFL Right Lower Extremity: Hip flexion 5/5. Quads 5/5. Hamstrings 5/5. Ankle DF 5/5. Left Lower Extremity: Hip flexion 5/5. Quads 5/5. Hamstrings 5/5. Ankle DF 5/5. Bed Mobility/Transfers: supine-sit: independent sit-supine: independent sit-stand: independent stand-sit: independent Gait: Patient ambulates 400' with supervision and without assistive device. No gait impairments or losses of balance noted. Balance: Static Sitting: Normal Dynamic Sitting: Normal Static Standing: Normal Dynamic Standing: Normal Special Tests: 4-Position balance test is 4/4 (0% deficit) Mobility Limitations Standardized Measure [facility] AM-PAC 6 clicks Basic Mobility Inpatient Short Form: Raw Score: 24 CMS Score: 0% deficit Informed Consent/Education: Patient instructed in purpose of PT consult and plan of care. Assessment: Patient is a 78 year old female referred to physical therapy services with the diagnosis of s/p fall- eval and treat. Patient presents with reports of mechanical fall, without signs of underlying balance impairment. Her mobility is at baseline, and she is safe to return home once medically stable. No further PT required in acute care setting. Patient is assessed as Low [id number] complexity based on the following: History: 78 year old female admitted on observation status after fall at home Examination: patient is functioning at baseline Presentation: stable Decision Making: low Goals: Plan of Care/Treatment Plan: Discharge from PT services in acute care setting. DISCHARGE RECOMMENDATIONS: home, without anticipated equipment needs or services TREATMENT CODE/TIME: 11:45-12:10 ([id number]) Octavia Avila, PT, DPT [facility]
[2018-11-21 12:18] LABS: TSH 3.32 uIU/mL (0.358-3.74)
--- NOTE | 2018-11-21 13:05 | OTIE_ITS ---
Occupational Therapy Notes Inpatient Occupational Therapy Evaluation Date: 11/21/18 Referring Doctor:Carline Fitzpatrick MD OT Orders: Eval and Treat Precautions: Standard PATIENT PROFILE/ADMITTING DIAGNOSIS: Pt is an 78- year old female admitted through the ER s/p a mechanical fall without LOC. Past Medical History: PAF (paroxysmal atrial fibrillation) (Chronic 2016) Chronic anticoagulation (Chronic) Hypertension (Chronic) Chronic kidney disease (Chronic) Hyperlipidemia (Chronic) Hypothyroidism (Chronic 03/05/17) LBBB (left bundle branch block) (Chronic 11/29/15) Osteoporosis (Chronic) Sensorineural hearing loss (SNHL), bilateral (Chronic) Sigmoid diverticulosis (Chronic) Squamous cell carcinoma of neck (Inactive ~09/2015) Social History/Home Situation: Pt lives alone in a private home. She has a very supportive family and is totally (I) at baseline for ADLs/IADLs. Equipment owned/DME: None SUBJECTIVE: Pt was sitting in chair with her daughter present in the room. She reports that she would like to go home. OBJECTIVE: General Observation: Pleasant and answers questions appropriately Mental Status: A&Ox3 Pain: no c/o pain ROM: RUE AROM WNL throughout L UE AROM WNL throughout STRENGTH: RUE 5/5 throughout globally LUE 5/5 throughout globally FUNCTIONAL MOBILITY/ADLS: Transfers Sit-Stand (I) Stand-sit (I) Bathroom-Chair (I) Chair-Bathroom (I) BATHING (I) with functional ROM able to cross midline and perform with ideal technique for UE, LE NT. DRESSING Dressing LE (I) don and doff (B) socks in seated position. GROOMING (I) brushing teeth, standing at the sink. TOILETING NT EATING NT BALANCE: Static sitting Normal Dynamic Sitting Normal Static Standing Normal Dynamic Standing Normal SPECIAL TESTS: Daily Activity Limitations Standardized Measure [facility] AM -PAC ?6 clicks? Daily Activity Inpatient Short Form: Raw score: 24 CMS score: 0.00% INFORMED CONSENT/EDUCATION: Pt instructed in purpose of OT Consult and plan of care. ASSESSMENT: Patient is an 78 -year-old female referred to occupational therapy services with diagnosis of s/p mechanical fall without LOC. Patient presents with clinical signs and symptoms consistent with dx. Pt was seen for OT consult only. She functionally is totally (I) with all ADLs/IADLs at this time. OT recommends that pt return home when medically cleared per MD with no DME needed. AMPAC score 24, CMS 0.00% Patient is assessed as a Low 21666 complexity based on the following: History: See Above Examination: See Above Presentation: Stable Decision Making: AMPAC score 24, CMS 0.00% GOALS N/A PLAN OF CARE/TREATMENT PLAN: OT consult only. DISCHARGE RECOMMENDATIONS Home with no DME needed. TREATMENT TIME/MINUTES/CODES [id number], 15 minutes (10:50) Lisa Hooks OTR/L [facility]
--- NOTE | 2018-11-21 14:02 | W.PM.DS.N ---
Date of service: 11/21/18 Time of Service: 14:03 DS: Diagnosis Discharge Diagnosis (1) Closed head injury without loss of consciousness: Status: Acute (2) Scalp contusion: Status: Acute (3) Tick bite of left lower leg: Status: Acute (4) PAF (paroxysmal atrial fibrillation): Status: Chronic (5) Hypertension: Status: Chronic (6) LBBB (left bundle branch block): Status: Chronic (7) Chronic kidney disease: Status: Chronic (8) Hyperlipidemia: Status: Chronic (9) Hypothyroidism: Status: Chronic (10) Bradycardia: Status: Acute Discharge Plan Disposition Patient Disposition: HOME Condition: Stable Discharge Details Reason For Visit: CLOSED HEAD INJURY, FRONTAL HEMATOMA Admit Date/Time: 11/20/18 18:09 Admit Provider: Aamir Martinez Attending Provider: Aamir Martinez Primary Care Provider: Quin Angel Hospital Course Hospital Course: Ms Austin is an 78 year old female with PMHx of paroxysmal Afib, on anticoagulation with coumadin, hypertension, hyperlipidemia, hypothyroidism, observed on [facility] hospitalist service overnight from 11/20/18 to 11/21/18 after a fall resulting in L scalp hematoma. She did not have any presyncopal prodromal symptoms prior to her fall, and her fall was thought to be purely mechanical. She did not, for that reason, undergo ischemic workup. Neurologically, her status remained intact. The appearance of scalp hematoma improved with her anticoagulation on hold. Importantly, this morning her heart rate was noted to be 41 (auscultated). She does take metoprolol 25 mg PO BID - she is instructed to take her pulse at home and hold it if her heart rate is below 50. She is asymptomatic of this bradycardia. She is being asked to keep an HR log and take it to her PCP for follow up to help guide further decisions. Finally, we feel it would be prudent for the patient to go home with a cardiac event recorder. She is medically stable for discharge home today with follow up with her PCP and off of anticoagulation until cleared to resume it by PCP. Additionally, PCP is asked to follow up on tick studies drawn at [facility] for a report of a tick bite recently - the patient is not being discharged with antibiotics. Home Meds and New Rx's Prescriptions: New acetaminophen [Tylenol] 325 mg Tablet 650 mg PO Q4H PRN PRNQty: 0 RF: 0 Continued losartan 50 mg tablet 50 mg PO DAILY Qty: 90 RF: 4 simvastatin 20 mg tablet 20 mg PO DAILY Qty: 90 RF: 4 LINDSEY MAG ZINC + D TABLET 1 EACH tablet 1 ea PO DAILY RF: 0 levothyroxine [Synthroid] 50 mcg tablet 50 mcg PO DAILY Qty: 90 RF: 4 levothyroxine 25 mcg tablet 12.5 mcg PO DAILY Qty: 45 RF: 4 metoprolol tartrate 25 mg tablet 12.5 mg PO BID Qty: 90 RF: 4 Discontinued warfarin 2.5 mg tablet 2.5 mg PO As Directed MDD 10mg/day Qty: 180 RF: 4 Discharge Instructions Instructions: Concussion (DC), Contusion in Adults (DC) Additional Instructions: Return to the hospital with worsening hematoma, if you have a headache uncontrolled with tylenol, fever, bleeding, chest pain, or shortness of breath. Follow up with your PCP as below. Measure your heart rate before taking metoprolol - skip the dose if the heart rate is below 60. Keep a log of your heart rates and take it to your PCP. Stand Alone Forms: Nursing Discharge Form Referrals: Quin Angel NP [Primary Care Provider] - 11/28/18 8:20 am Activity:: Activity as Tolerated Equipment/Supplies:: No Equipment Needed Diet:: As Tolerated Discharge Orders Discharge Orders: Discharge Order (Routine); Ordered 11/21/18 Ordered By: Carline Fitzpatrick Other Ambulatory Orders: Cardiac Event Recorder (Outpt) (ONCE) Location: Determined by Patient Ordered By: Carline Fitzpatrick Exam Narrative Exam Narrative: General: Elderly female, sitting up in bed, NAD, A&ox3 HEENT: L sided scalp and facial hematoma, EOMI, MMM Heart: irregularly irregular rhythm Lungs: CTAB GI: abdomen is soft, nontender, nondistended Extremities: no e/c/c BLE's, 2+ pedal pulses B DS: Data Vitals/I&O Vitals and I&O: Vital Signs Temperature 37.2 C 11/21/18 11:35 Temperature Source Tympanic 11/21/18 11:35 Pulse 46 L 11/21/18 11:35 Pulse Rhythm Irregular 11/21/18 08:07 Pulse 66 11/20/18 16:10 Respiratory Rate 18 11/21/18 11:35 Respiratory Effort Non-Labored 11/21/18 08:07 Respiratory Depth Normal 11/21/18 08:07 Respiratory Pattern Normal 11/21/18 08:07 Blood Pressure 145/78 H 11/21/18 11:35 Blood Pressure Mean 87 11/20/18 16:01 Blood Pressure Position Supine 11/20/18 15:04 Pulse Oximetry 99 11/21/18 11:35 Oxygen Delivery Method Room Air 11/21/18 11:35 Oxygen Flow Rate 0 11/21/18 11:35 Pain Level 0 11/21/18 11:35 Intake & Output 11/20/18 11/21/18 11/21/18 23:59 11:59 23:59 Intake Total 300 / 300 Output Total 1200 / 1200 Balance -900 / -900 Weight 68.039 kg 69.2 kg Intake: Oral 300 / 300 Output: Urine 1200 / 1200 Other: Urine Color Yellow Urine Appearance Clear Clear Urine Odor Normal Voiding Methods Toilet Completed studies during hospitalization [Text1]: XR tib/fib LLE 11/20/18: No acute fracture or dislocation is present CT brain 11/20/18: No acute intracranial process. 2. Small moderate size left frontal scalp hematoma. CT head 11/21/18: 1. No acute intracranial hemorrhage or skull fracture. 2. Left frontal scalp hematoma. Pending studies at discharge: Tick panel Labs on day of discharge: Labs from last 24 hours 11/21/18 11/21/18 11/21/18 11:30 11:30 11:30 WBC RBC Hgb Hct MCV MCH MCHC RDW Plt Count MPV Immature Gran % Neutrophils % Lymphocytes % Monocytes % Eosinophils % Basophils % Absolute Neutrophils Absolute Lymphocytes Absolute Monocytes Absolute Eosinophils Absolute Basophils PT INR Sodium Potassium Chloride Carbon Dioxide Anion Gap BUN Creatinine Estimated GFR/1.73 m2 Glucose Calcium Magnesium Troponin I < 0.02 TSH 3.32 A.phagocytophil DNA PCR Pending B. divergens/MO-1 PCR Pending Babesia duncani (PCR) Pending Babesia microti DNA PCR Pending Borrelia (PCR) Pending Lyme Disease Antibody Pending E.chaffeensis DNA (PCR) Pending E.ewingii/canis DNA PCR Pending E. muris-like DNA (PCR) Pending 11/21/18 11/21/18 11/21/18 11:30 11:30 06:20 WBC 5.15 RBC 4.02 Hgb 12.3 Hct 37.7 MCV 93.8 MCH 30.6 MCHC 32.6 RDW 12.9 Plt Count 239 MPV 10.1 Immature Gran % 0.2 Neutrophils % 62.3 Lymphocytes % 22.1 Monocytes % 10.5 Eosinophils % 3.3 Basophils % 1.6 Absolute Neutrophils 3.21 Absolute Lymphocytes 1.14 L Absolute Monocytes 0.54 Absolute Eosinophils 0.17 Absolute Basophils 0.08 PT 18.6 H INR 1.8 H Sodium 141 Potassium 4.1 Chloride 105 Carbon Dioxide 29.2 Anion Gap 6.8 BUN 17 Creatinine 0.96 Estimated GFR/1.73 m2 55.92 Glucose 105 H Calcium 8.1 L Magnesium 2.1 Troponin I TSH A.phagocytophil DNA PCR B. divergens/MO-1 PCR Babesia duncani (PCR) Babesia microti DNA PCR Borrelia (PCR) Lyme Disease Antibody E.chaffeensis DNA (PCR) E.ewingii/canis DNA PCR E. muris-like DNA (PCR) 11/20/18 16:10 WBC RBC Hgb Hct MCV MCH MCHC RDW Plt Count MPV Immature Gran % Neutrophils % Lymphocytes % Monocytes % Eosinophils % Basophils % Absolute Neutrophils Absolute Lymphocytes Absolute Monocytes Absolute Eosinophils Absolute Basophils PT 18.5 H INR 1.8 H Sodium Potassium Chloride Carbon Dioxide Anion Gap BUN Creatinine Estimated GFR/1.73 m2 Glucose Calcium Magnesium Troponin I TSH A.phagocytophil DNA PCR B. divergens/MO-1 PCR Babesia duncani (PCR) Babesia microti DNA PCR Borrelia (PCR) Lyme Disease Antibody E.chaffeensis DNA (PCR) E.ewingii/canis DNA PCR E. muris-like DNA (PCR) [facility] Medical History PAF (paroxysmal atrial fibrillation) (Chronic 2016) Chronic anticoagulation (Chronic) Hypertension (Chronic) Chronic kidney disease (Chronic) Hyperlipidemia (Chronic) Hypothyroidism (Chronic 03/05/17) LBBB (left bundle branch block) (Chronic 11/29/15) Osteoporosis (Chronic) Sensorineural hearing loss (SNHL), bilateral (Chronic) Sigmoid diverticulosis (Chronic) Squamous cell carcinoma of neck (Inactive ~09/2015) Surgical History Cholecystectomy (Inactive ~1988) Colonoscopy - MAC (Inactive ~2009) Dilation and curettage (Inactive ~1977) Hysterectomy, Laproscopic (Inactive ~1978) Ligation of fallopian tube (Inactive ~1967) Skin Cancer Removal (Inactive 12/15/15) Family History Mother Essential hypertension Father Alcohol abuse Sister No problems noted. Sister No problems noted. Brother No problems noted. Brother No problems noted. Brother Epilepsy Brother No problems noted. Son No problems noted. Son No problems noted. Son No problems noted. Daughter No problems noted. Maternal Grandfather No problems noted. Maternal Grandmother Chronic obstructive lung disease Essential hypertension Paternal Grandfather No problems noted. Paternal Grandmother No problems noted. Social History Smoking/Tobacco Use Status: Never Second Hand Exposure: Yes (Prior to 2007) Alcohol Intake: current Alcohol Intake frequency: a few times a month Drug use: Never Substance use type: does not use Caregiver/Support person: No Household members: none Communication Needs: Hard of Hearing Pets and animals: No Sexually active: No Do you think of yourself as: straight/heterosexual Current gender identity: female What is your relationship status?: How often do you talk on the phone with friends or family?: three or more times per week How often do you get together with friends or relatives?: three or more times per week How often do you attend gnosticist or sabianism services?: 4 or more times per year Do you belong to any clubs or organized social groups?: no Panel score (0-1 are the most socially isolated patients): 2 What type of physical activity do you participate in: walking and swimming Duration: 45-60 minutes/day Frequency: 5-6 times per week Malia/Latter-Day: Jew Special malia needs: No Seatbelt use: always Drive intox or ride w/intox chuck wagon driver: No Do you feel safe in your relationship?: Yes Female Reproductive History Menstrual Menopause type: surgical History History 4 Para 4 Hx # Term Pregnancies Multiple births Hx # Pregnancies Ectopic pregnancies AB induced Hx Number of Living Children 4 AB spontaneous
--- NOTE | 2018-11-21 14:08 | DSE_ITS ---
Date of service: 11/21/18 Time of Service: 14:03 DS: Diagnosis Discharge Diagnosis (1) Closed head injury without loss of consciousness: Status: Acute (2) Scalp contusion: Status: Acute (3) Tick bite of left lower leg: Status: Acute (4) PAF (paroxysmal atrial fibrillation): Status: Chronic (5) Hypertension: Status: Chronic (6) LBBB (left bundle branch block): Status: Chronic (7) Chronic kidney disease: Status: Chronic (8) Hyperlipidemia: Status: Chronic (9) Hypothyroidism: Status: Chronic (10) Bradycardia: Status: Acute Discharge Plan Disposition Patient Disposition: HOME Condition: Stable Discharge Details Reason For Visit: CLOSED HEAD INJURY, FRONTAL HEMATOMA Admit Date/Time: 11/20/18 18:09 Admit Provider: Aamir Martinez Attending Provider: Aamir Martinez Primary Care Provider: Quin Angel Hospital Course Hospital Course: Ms Austin is an 78 year old female with PMHx of paroxysmal Afib, on anticoagulation with coumadin, hypertension, hyperlipidemia, hypothyroidism, observed on [facility] hospitalist service overnight from 11/20/18 to 11/21/18 after a fall resulting in L scalp hematoma. She did not have any presyncopal prodromal symptoms prior to her fall, and her fall was thought to be purely mechanical. She did not, for that reason, undergo ischemic workup. Neurologically, her status remained intact. The appearance of scalp hematoma improved with her anticoagulation on hold. Importantly, this morning her heart rate was noted to be 41 (auscultated). She does take metoprolol 25 mg PO BID - she is instructed to take her pulse at home and hold it if her heart rate is below 50. She is asymptomatic of this bradycardia. She is being asked to keep an HR log and take it to her PCP for follow up to help guide further decisions. Finally, we feel it would be prudent for the patient to go home with a cardiac event recorder. She is medically stable for discharge home today with follow up with her PCP and off of anticoagulation until cleared to resume it by PCP. Additionally, PCP is asked to follow up on tick studies drawn at [facility] for a report of a tick bite recently - the patient is not being discharged with antibiotics. Home Meds and New Rx's Prescriptions: New acetaminophen [Tylenol] 325 mg Tablet 650 mg PO Q4H PRN PRNQty: 0 RF: 0 Continued losartan 50 mg tablet 50 mg PO DAILY Qty: 90 RF: 4 simvastatin 20 mg tablet 20 mg PO DAILY Qty: 90 RF: 4 LINDSEY MAG ZINC + D TABLET 1 EACH tablet 1 ea PO DAILY RF: 0 levothyroxine [Synthroid] 50 mcg tablet 50 mcg PO DAILY Qty: 90 RF: 4 levothyroxine 25 mcg tablet 12.5 mcg PO DAILY Qty: 45 RF: 4 metoprolol tartrate 25 mg tablet 12.5 mg PO BID Qty: 90 RF: 4 Discontinued warfarin 2.5 mg tablet 2.5 mg PO As Directed MDD 10mg/day Qty: 180 RF: 4 Discharge Instructions Instructions: Concussion (DC), Contusion in Adults (DC) Additional Instructions: Return to the hospital with worsening hematoma, if you have a headache uncontrolled with tylenol, fever, bleeding, chest pain, or shortness of breath. Follow up with your PCP as below. Measure your heart rate before taking metoprolol - skip the dose if the heart rate is below 60. Keep a log of your heart rates and take it to your PCP. Stand Alone Forms: Nursing Discharge Form Referrals: Quin Angel NP [Primary Care Provider] - 11/28/18 8:20 am Activity:: Activity as Tolerated Equipment/Supplies:: No Equipment Needed Diet:: As Tolerated Discharge Orders Discharge Orders: Discharge Order (Routine); Ordered 11/21/18 Ordered By: Carline Fitzpatrick Other Ambulatory Orders: Cardiac Event Recorder (Outpt) (ONCE) Location: Determined by Patient Ordered By: Carline Fitzpatrick Exam Narrative Exam Narrative: General: Elderly female, sitting up in bed, NAD, A&ox3 HEENT: L sided scalp and facial hematoma, EOMI, MMM Heart: irregularly irregular rhythm Lungs: CTAB GI: abdomen is soft, nontender, nondistended Extremities: no e/c/c BLE's, 2+ pedal pulses B DS: Data Vitals/I&O Vitals and I&O: Vital Signs Temperature 37.2 C 11/21/18 11:35 Temperature Source Tympanic 11/21/18 11:35 Pulse 46 L 11/21/18 11:35 Pulse Rhythm Irregular 11/21/18 08:07 Pulse 66 11/20/18 16:10 Respiratory Rate 18 11/21/18 11:35 Respiratory Effort Non-Labored 11/21/18 08:07 Respiratory Depth Normal 11/21/18 08:07 Respiratory Pattern Normal 11/21/18 08:07 Blood Pressure 145/78 H 11/21/18 11:35 Blood Pressure Mean 87 11/20/18 16:01 Blood Pressure Position Supine 11/20/18 15:04 Pulse Oximetry 99 11/21/18 11:35 Oxygen Delivery Method Room Air 11/21/18 11:35 Oxygen Flow Rate 0 11/21/18 11:35 Pain Level 0 11/21/18 11:35 Intake & Output 11/20/18 11/21/18 11/21/18 23:59 11:59 23:59 Intake Total 300 / 300 Output Total 1200 / 1200 Balance -900 / -900 Weight 68.039 kg 69.2 kg Intake: Oral 300 / 300 Output: Urine 1200 / 1200 Other: Urine Color Yellow Urine Appearance Clear Clear Urine Odor Normal Voiding Methods Toilet Completed studies during hospitalization [Text1]: XR tib/fib LLE 11/20/18: No acute fracture or dislocation is present CT brain 11/20/18: No acute intracranial process. 2. Small moderate size left frontal scalp hematoma. CT head 11/21/18: 1. No acute intracranial hemorrhage or skull fracture. 2. Left frontal scalp hematoma. Pending studies at discharge: Tick panel Labs on day of discharge: Labs from last 24 hours 11/21/18 11/21/18 11/21/18 11:30 11:30 11:30 WBC RBC Hgb Hct MCV MCH MCHC RDW Plt Count MPV Immature Gran % Neutrophils % Lymphocytes % Monocytes % Eosinophils % Basophils % Absolute Neutrophils Absolute Lymphocytes Absolute Monocytes Absolute Eosinophils Absolute Basophils PT INR Sodium Potassium Chloride Carbon Dioxide Anion Gap BUN Creatinine Estimated GFR/1.73 m2 Glucose Calcium Magnesium Troponin I < 0.02 TSH 3.32 A.phagocytophil DNA PCR Pending B. divergens/MO-1 PCR Pending Babesia duncani (PCR) Pending Babesia microti DNA PCR Pending Borrelia (PCR) Pending Lyme Disease Antibody Pending E.chaffeensis DNA (PCR) Pending E.ewingii/canis DNA PCR Pending E. muris-like DNA (PCR) Pending 11/21/18 11/21/18 11/21/18 11:30 11:30 06:20 WBC 5.15 RBC 4.02 Hgb 12.3 Hct 37.7 MCV 93.8 MCH 30.6 MCHC 32.6 RDW 12.9 Plt Count 239 MPV 10.1 Immature Gran % 0.2 Neutrophils % 62.3 Lymphocytes % 22.1 Monocytes % 10.5 Eosinophils % 3.3 Basophils % 1.6 Absolute Neutrophils 3.21 Absolute Lymphocytes 1.14 L Absolute Monocytes 0.54 Absolute Eosinophils 0.17 Absolute Basophils 0.08 PT 18.6 H INR 1.8 H Sodium 141 Potassium 4.1 Chloride 105 Carbon Dioxide 29.2 Anion Gap 6.8 BUN 17 Creatinine 0.96 Estimated GFR/1.73 m2 55.92 Glucose 105 H Calcium 8.1 L Magnesium 2.1 Troponin I TSH A.phagocytophil DNA PCR B. divergens/MO-1 PCR Babesia duncani (PCR) Babesia microti DNA PCR Borrelia (PCR) Lyme Disease Antibody E.chaffeensis DNA (PCR) E.ewingii/canis DNA PCR E. muris-like DNA (PCR) 11/20/18 16:10 WBC RBC Hgb Hct MCV MCH MCHC RDW Plt Count MPV Immature Gran % Neutrophils % Lymphocytes % Monocytes % Eosinophils % Basophils % Absolute Neutrophils Absolute Lymphocytes Absolute Monocytes Absolute Eosinophils Absolute Basophils PT 18.5 H INR 1.8 H Sodium Potassium Chloride Carbon Dioxide Anion Gap BUN Creatinine Estimated GFR/1.73 m2 Glucose Calcium Magnesium Troponin I TSH A.phagocytophil DNA PCR B. divergens/MO-1 PCR Babesia duncani (PCR) Babesia microti DNA PCR Borrelia (PCR) Lyme Disease Antibody E.chaffeensis DNA (PCR) E.ewingii/canis DNA PCR E. muris-like DNA (PCR) [facility] Medical History PAF (paroxysmal atrial fibrillation) (Chronic 2016) Chronic anticoagulation (Chronic) Hypertension (Chronic) Chronic kidney disease (Chronic) Hyperlipidemia (Chronic) Hypothyroidism (Chronic 03/05/17) LBBB (left bundle branch block) (Chronic 11/29/15) Osteoporosis (Chronic) Sensorineural hearing loss (SNHL), bilateral (Chronic) Sigmoid diverticulosis (Chronic) Squamous cell carcinoma of neck (Inactive ~09/2015) Surgical History Cholecystectomy (Inactive ~1988) Colonoscopy - MAC (Inactive ~2009) Dilation and curettage (Inactive ~1977) Hysterectomy, Laproscopic (Inactive ~1978) Ligation of fallopian tube (Inactive ~1967) Skin Cancer Removal (Inactive 12/15/15) Family History Mother Essential hypertension Father Alcohol abuse Sister No problems noted. Sister No problems noted. Brother No problems noted. Brother No problems noted. Brother Epilepsy Brother No problems noted. Son No problems noted. Son No problems noted. Son No problems noted. Daughter No problems noted. Maternal Grandfather No problems noted. Maternal Grandmother Chronic obstructive lung disease Essential hypertension Paternal Grandfather No problems noted. Paternal Grandmother No problems noted. Social History Smoking/Tobacco Use Status: Never Second Hand Exposure: Yes (Prior to 2007) Alcohol Intake: current Alcohol Intake frequency: a few times a month Drug use: Never Substance use type: does not use Caregiver/Support person: No Household members: none Communication Needs: Hard of Hearing Pets and animals: No Sexually active: No Do you think of yourself as: straight/heterosexual Current gender identity: female What is your relationship status?: How often do you talk on the phone with friends or family?: three or more times per week How often do you get together with friends or relatives?: three or more times per week How often do you attend taoist or orthodox services?: 4 or more times per year Do you belong to any clubs or organized social groups?: no Panel score (0-1 are the most socially isolated patients): 2 What type of physical activity do you participate in: walking and swimming Duration: 45-60 minutes/day Frequency: 5-6 times per week Malia/Rastafari: [employer] Special malia needs: No Seatbelt use: always Drive intox or ride w/intox charter coach driver: No Do you feel safe in your relationship?: Yes Female Reproductive History Menstrual Menopause type: surgical History History 4 Para 4 Hx # Term Pregnancies Multiple births Hx # Pregnancies Ectopic pregnancies AB induced Hx Number of Living Children 4 AB spontaneous
--- NOTE | 2018-11-21 15:50 | PDOC.CMDIS ---
LACE Index Scoring Tool - Questions: Length of Stay (in days): 2 Acuity (Admit via E.D.?): Yes Comorbidities: Mild Liver/Renal Disease E.D. Visits: 1 - Answers: Total Score: 8 Risk of Readmission: Low Risk Care Management Discharge Reason for Hospitalization: closed head injury without loss of consciousness, frontal hematoma. Discharge Plan: she is being discharged home to follow-up with her PCP. Family is transporting. Patient/Family Education Needs: RN to review d/c instructions re meds, monitoring of HR and activity levels. Patient able to verbalize reason for being here.
[2018-11-23 13:55] LABS: Anaplasma phagocytophilum Negative (Negative); B. miyamotoi PCR Negative (Negative); Babesia divergens/MO-1 Negative (Negative); Babesia duncani Negative (Negative); Babesia microti Negative (Negative); Ehrlichia chaffeensis Negative (Negative); Ehrlichia ewingii/canis Negative (Negative); Ehrlichia muris eauclairensis Negative (Negative)
[2018-11-24 11:08] LABS: Lyme Ab w Rflx to Lyme Confirm Negative
--- NOTE | 2018-12-31 13:02 | CER_ITS ---
PREVENTICE REPORT DATE OF INTERPRETATION: December 31, 2018 FINDINGS: The patient was monitored for 8 days and 23 hours. The baseline rhythm was sinus rhythm with interventricular conduction delay. Average heart rate 66 bpm, range 52-106 bpm. Rare ectopy. No tachyarrhythmias. No pauses greater than 3 seconds. No high degree heart block. One patient event which correlated with sinus rhythm at 51 bpm. FINAL INTERPRETATION: No significant tachy or bradyarrhythmias.
== END 2018-11-21 16:17 | disposition home or self-care (01) ==
LOC: ER 18:38 → MS 18:41
PROVIDERS: Admitting Provider Internal Medicine; Emergency Provider Student in an Organized Health Care Education/Training Program; PCP Nurse Practitioner Family; Visit Provider Internal Medicine
DX: S09.90XA Unspecified injury of head, initial encounter (principal); S00.03XA Contusion of scalp, initial encounter; S80.812A Abrasion, left lower leg, initial encounter; W01.10XA Fall on same level from slipping, tripping and stumbling with subsequent striking against unspecified object, initial encounter; S80.862A Insect bite (nonvenomous), left lower leg, initial encounter; W57.XXXA Bitten or stung by nonvenomous insect and other nonvenomous arthropods, initial encounter; I48.0 Paroxysmal atrial fibrillation; Z79.01 Long term (current) use of anticoagulants; R00.1 Bradycardia, unspecified; I12.9 Hypertensive chronic kidney disease with stage 1 through stage 4 chronic kidney disease, or unspecified chronic kidney disease; N18.9 Chronic kidney disease, unspecified; I44.7 Left bundle-branch block, unspecified; E03.9 Hypothyroidism, unspecified
CPT/HCPCS: 36415; 80048; 93270; 97161; 97165; 97535; 99217; 99219; 99285; 70450; 73590; 83735; 84443; 84484; 85025; 85610; 86618; 87798; 93005; 93010; 99284; G0378

== ENCOUNTER 2018-11-29 10:34 | Outpatient (CLI) | payer MEDICARE, OTHER, SELFPAY ==
[2018-11-29 11:01] LABS: Prothrombin Time 9.6 sec (9.3-11.0)
== END 2018-11-29 10:54 ==
PROVIDERS: PCP Nurse Practitioner Family; Visit Provider Nurse Practitioner Family
DX: I48.0 Paroxysmal atrial fibrillation (principal); Z79.01 Long term (current) use of anticoagulants
CPT/HCPCS: 36415; 85610

== ENCOUNTER 2018-11-30 13:04 | Emergency (ER) | payer MEDICARE, OTHER, SELFPAY ==
--- NOTE | 2018-11-30 13:08 | NUR.NOTE ---
Nursing Note: pt states that 10 days ago she fell wile walking outside catching her food on a hose. pt was brought to our ER and admitted over night for observation. since then the PT has had increasing back pain, lumba.[email or web address] 01/24 pain primary complain is back pain
[2018-11-30 13:11] VITALS: BP 132/88; PULSE 66; RESP 15; TEMP 37; O2SAT 95
--- NOTE | 2018-11-30 13:21 | W.ED.GENAD ---
Discharge Plan Disposition Patient Disposition: HOME Condition: Improving Discharge Details Chief Complaint: Nk/Back Pain Clinical Impression: Lumbar spine pain Primary Care Provider: Quin Angel ED Provider: Kacie Hong Home Meds and New Rx's Prescriptions: Continued losartan 50 mg tablet 50 mg PO DAILY Qty: 90 RF: 4 simvastatin 20 mg tablet 20 mg PO DAILY Qty: 90 RF: 4 LINDSEY MAG ZINC + D TABLET 1 EACH tablet 1 ea PO DAILY RF: 0 levothyroxine [Synthroid] 50 mcg tablet 50 mcg PO DAILY Qty: 90 RF: 4 levothyroxine 25 mcg tablet 12.5 mcg PO DAILY Qty: 45 RF: 4 acetaminophen [Tylenol] 325 mg Tablet 650 mg PO Q4H PRN PRNQty: 0 RF: 0 metoprolol tartrate 25 mg tablet 12.5 mg PO BID Qty: 90 RF: 4 warfarin 2.5 mg Tablet 2.5 mg PO DAILY RF: 0 Discharge Instructions Instructions: Low Back Strain (ED) Additional Instructions: Encourage hydration. Continue with Tylenol as needed for discomfort. You may use [id number] patches such as Lidoderm or salonpas patches to help with discomfort. Please keep upcoming appointment with primary care If you develop fever/chills, weakness, incontinence, altered sensation or other new/worsening symptoms please seek care urgently once again. Referrals: Quin Angel, PARAPROFESSIONAL AIDE TEACHER [Primary Care Provider] - Medical Decision Making Patient surjit 78 year old female presenting today with c/c of back pain. Nehemias was seen here and admitted fo rhead injury 10 days ago she sustained from zepeda from standing height. Initially, patient did not have any back pain. States that she did not develop this pain until a few days after discharge but notes that pain has been increasing since. Pain is worse with flexion and extension movement. Denies weakness, no radiating pain, no incontinence. Denies fevers/chills. No injury since this fall. Patient is point tender along lumbar spine, particularly from L1-L3, made worse with flexion. Plan to obtain CT to evaluate. She has been doing well with Tylenol and topical creams, will use Lidoderm patch. CT reviewed by radiologist. No evidence of bony abnormality on thoracic or lumbar spine. They do note diffuse degenerative spurring. Note that the paraspinal soft tissues are unremarkable. Also notes diffuse interstitial lung disease. Discussed these findings with the patient. Encourage hydration. Advised frequent ambulation and gentle stretching. Advised against any heavy lifting while pain persists. She has an upcoming appointment this week with her primary care. She is given strict return precautions. All other questions and concerns were addressed and she is plan. She knows that this is not acutely fractured, she feels that she will be able to manage her pain well at home HPI General Mode of arrival: ambulatory. Date/Time Provider Initiated Documentation: 11/30/18 13:21. Limitations to Documentation: no limitations. Information obtained by: patient and RN notes reviewed. History of Present Illness 78 year old F presents to the emergency department with the chief complaint of back pain, described as moderate, with intensity rated at 8. Quality is described as sharp, and is localized to the back (lumbar). Patient reports no radiation. Patient started experiencing this day(s) (10days) and it has been constant (worsening with time). Medication improves symptom(s), (tylenol and topical therapy) Movement worsens symptoms . Patient notes denies chest pain, cough, fever/chills, nausea/vomiting, rash and weakness. Patient did receive the following treatments prior to arrival, none Related Data Home Medications Medication Instructions Recorded Confirmed Lindsey Mag Zinc + D Tablet 1 ea PO DAILY 10/03/17 11/30/18 losartan 50 mg tablet 50 mg PO DAILY #90 tab-cap 04/02/18 11/30/18 simvastatin 20 mg tablet 20 mg PO DAILY #90 tab-cap 04/02/18 11/30/18 levothyroxine 25 mcg tablet 12.5 mcg PO DAILY #45 tab 11/05/18 11/30/18 levothyroxine 50 mcg tablet 50 mcg PO DAILY #90 tab-cap 11/05/18 11/30/18 acetaminophen [Tylenol] 650 mg PO Q4H PRN PRN #0 tab 11/21/18 11/30/18 metoprolol tartrate 12.5 mg PO BID #90 tab-cap 11/21/18 11/30/18 warfarin 2.5 mg PO DAILY 11/30/18 11/30/18 Previous Rx's Medication Instructions Recorded losartan 50 mg tablet 50 mg PO DAILY #90 tab-cap 04/02/18 simvastatin 20 mg tablet 20 mg PO DAILY #90 tab-cap 04/02/18 levothyroxine 25 mcg tablet 12.5 mcg PO DAILY #45 tab 11/05/18 levothyroxine 50 mcg tablet 50 mcg PO DAILY #90 tab-cap 11/05/18 acetaminophen [Tylenol] 650 mg PO Q4H PRN PRN #0 tab 11/21/18 metoprolol tartrate 12.5 mg PO BID #90 tab-cap 11/21/18 Allergies Allergy/AdvReac Type Severity Reaction Status Date / Time No Known Allergies Allergy Unverified 11/30/18 13:13 General Stated Complaint: Nk/Back Pain THELMA: 4 Review of Systems Constitutional Reports as per HPI, Denies chills, Denies fatigue, Denies fever(s), Denies headache(s) and Denies weakness ENT Denies headache(s) Cardiovascular Reports as per HPI, Denies chest pain and Denies dyspnea Respiratory Reports as per HPI, Denies cough and Denies dyspnea Gastrointestinal Reports as per HPI, Reports constipation and Denies fecal incontinence Genitourinary Denies urinary incontinence Musculoskeletal Reports as per HPI, Denies abnormal gait, Denies back pain and Denies tingling Integumentary/Breasts Reports as per HPI and Denies rash Neurologic Reports as per HPI, Denies abnormal gait, Denies headache(s), Denies focal weakness, Denies radicular pain, Denies sensory deficit, Denies tingling and Denies weakness Endocrine Denies fatigue [facility] Medical History PAF (paroxysmal atrial fibrillation) (Chronic 2016) Chronic anticoagulation (Chronic) Hypertension (Chronic) Chronic kidney disease (Chronic) Hyperlipidemia (Chronic) Hypothyroidism (Chronic 03/05/17) LBBB (left bundle branch block) (Chronic 11/29/15) Osteoporosis (Chronic) Sensorineural hearing loss (SNHL), bilateral (Chronic) Sigmoid diverticulosis (Chronic) Squamous cell carcinoma of neck (Inactive ~09/2015) Surgical History Cholecystectomy (Inactive ~1988) Colonoscopy - MAC (Inactive ~2009) Dilation and curettage (Inactive ~1977) Hysterectomy, Laproscopic (Inactive ~1978) Ligation of fallopian tube (Inactive ~1967) Skin Cancer Removal (Inactive 12/15/15) Social History (Reviewed 11/30/18 @ 13:44 by AMY Stockton Smoking/Tobacco Use Status: Never Second Hand Exposure: Yes (Prior to 2007) Alcohol Intake: current Alcohol Intake frequency: a few times a month Drug use: Never Substance use type: does not use Caregiver/Support person: No Household members: none Communication Needs: Hard of Hearing Pets and animals: No Sexually active: No Do you think of yourself as: straight/heterosexual Current gender identity: female What is your relationship status?: How often do you talk on the phone with friends or family?: three or more times per week How often do you get together with friends or relatives?: three or more times per week How often do you attend buddhism or yazdanism services?: 4 or more times per year Do you belong to any clubs or organized social groups?: no Panel score (0-1 are the most socially isolated patients): 2 What type of physical activity do you participate in: walking and swimming Duration: 45-60 minutes/day Frequency: 5-6 times per week Malia/Anabaptism: Judaism Special malia needs: No Seatbelt use: always Drive intox or ride w/intox hook up driver: No Do you feel safe at home: Yes Do you feel safe in your relationship?: Yes Female Reproductive History Menstrual Menopause type: surgical History History 4 Para 4 Hx # Term Pregnancies Multiple births Hx # Pregnancies Ectopic pregnancies AB induced Hx Number of Living Children 4 AB spontaneous Exam Const General: cooperative, healthy appearing, comfortable, no acute distress and well developed Nutritional Appearance: average body habitus and well nourished Orientation: alert and awake HENMT Head: normal to inspection Mouth: moist mucous membranes Resp Effort & Inspection: normal respiratory effort, able to speak in complete sentences and no respiratory distress Auscultation: clear to auscultation bilaterally, no rales, no rhonchi and no wheezes Cardio Rate: regular rate Rhythm: regular rhythm Heart Sounds: S1 normal and S2 normal Back/Spine/Pelvis Back: no CVA tenderness Cervical Spine: normal cervical lordosis and cervical ROM normal Thoracic/Lumbar Spine: No thoraco-lumbar ROM normal (limited forward flexion, pain in lumbar spine), straight leg raise negative bilaterally, No mass, pain with thoraco-lumbar ROM, No paraspinal tenderness, No thoraco-lumbar spasm, No thoracic spinal tenderness and lumbar spinal tenderness Pelvis: no pain with anterior-posterior compression Sacroiliac joints: bilaterally nontender Skin General skin exam: no rashes or lesions noted Trauma: no lacerations or abrasions Neuro General: alert, awake and oriented x3 Cognition: normal cognition Speech: speech normal Gait: normal gait Motor: muscle tone normal throughout, strength 5/5 throughout, no movement abnormalities noted and no fasciculations Sensory Exam: no sensory deficits noted (no saddle paresthesias) DTR's: Rt Patellar: 2+, Lt Patellar: 2+, Rt Ankle: 2+ and Lt Ankle: 2+ Extrem General: normal to inspection, full ROM, normal capillary refill, no pedal edema, no calf tenderness, normal gait and no calf tenderness bilaterally Psych Appearance: grossly normal and well kempt Mental Status: mental status grossly normal Speech and Movement: speech and movement normal Course Vital Signs Temperature 37.0 C 11/30/18 13:11 Pulse 66 11/30/18 13:11 Respiratory Rate 15 11/30/18 13:11 Blood Pressure 132/88 11/30/18 13:11 Pulse Oximetry 95 11/30/18 13:11 Temperature 37.0 C 11/30/18 13:11 Temperature Source Skin 11/30/18 13:11 Pulse 66 11/30/18 13:11 Respiratory Rate 15 11/30/18 13:11 Respiratory Effort 11/30/18 13:15 Blood Pressure 132/88 11/30/18 13:11 Blood Pressure Position Sitting 11/30/18 13:11 Pulse Oximetry 95 11/30/18 13:11 Oxygen Delivery Method Room Air 11/30/18 13:11 Oxygen Flow Rate 0 11/30/18 13:11 Pain Level 8 11/30/18 13:11
--- NOTE | 2018-11-30 13:34 | DI.CT_ITS ---
SYMPTOMS/DIAGNOSIS: UPPER AND LOWER BACK PAIN S/P FALL CT OF THE THORACIC SPINE: Comparison is made with December,. There is a stable mild fracture of the inferior endplate of T3. There is also mild compression of the superior endplate of T12. Degenerative disc changes are noted with anteriorly projecting osteophytes. There is no encroachment into the central canal or neural foramen. No paraspinal hematoma is seen. The aorta shows calcification and is tortuous. There are mild interstitial changes of the lungs. IMPRESSION: Stable old T3 compression fracture. Minimal compression of the T12 vertebral body. CT OF THE LUMBAR SPINE There is no evidence of an acute fracture. There are degenerative disc changes at L3-4 and L4-5, which are eccentric toward the right causing a degenerative scoliosis. There is left-sided narrowing of the L5-S1 disc and endplate osteophyte formation. IMPRESSION: Degenerative changes and scoliosis. No acute abnormality.
[2018-11-30] MEDS: Lidocaine 5% Patch 1 PATCH TP (13:47)
--- NOTE | 2018-11-30 13:50 | ED.GENADUL_ITS ---
Discharge Plan Disposition Patient Disposition: HOME Condition: Improving Discharge Details Chief Complaint: Nk/Back Pain Clinical Impression: Lumbar spine pain Primary Care Provider: Quin Angel ED Provider: Kacie Hong Home Meds and New Rx's Prescriptions: Continued losartan 50 mg tablet 50 mg PO DAILY Qty: 90 RF: 4 simvastatin 20 mg tablet 20 mg PO DAILY Qty: 90 RF: 4 LINDSEY MAG ZINC + D TABLET 1 EACH tablet 1 ea PO DAILY RF: 0 levothyroxine [Synthroid] 50 mcg tablet 50 mcg PO DAILY Qty: 90 RF: 4 levothyroxine 25 mcg tablet 12.5 mcg PO DAILY Qty: 45 RF: 4 acetaminophen [Tylenol] 325 mg Tablet 650 mg PO Q4H PRN PRNQty: 0 RF: 0 metoprolol tartrate 25 mg tablet 12.5 mg PO BID Qty: 90 RF: 4 warfarin 2.5 mg Tablet 2.5 mg PO DAILY RF: 0 Discharge Instructions Instructions: Low Back Strain (ED) Additional Instructions: Encourage hydration. Continue with Tylenol as needed for discomfort. You may use [id number] patches such as Lidoderm or salonpas patches to help with discomfort. Please keep upcoming appointment with primary care If you develop fever/chills, weakness, incontinence, altered sensation or other new/worsening symptoms please seek care urgently once again. Referrals: Quin Angel, PHYSICAL THERAPY AIDE [Primary Care Provider] - Medical Decision Making Patient surjit 78 year old female presenting today with c/c of back pain. Nehemias was seen here and admitted fo rhead injury 10 days ago she sustained from zepeda from standing height. Initially, patient did not have any back pain. States that she did not develop this pain until a few days after discharge but notes that pain has been increasing since. Pain is worse with flexion and extension movement. Denies weakness, no radiating pain, no incontinence. Denies fevers/chills. No injury since this fall. Patient is point tender along lumbar spine, particularly from L1-L3, made worse with flexion. Plan to obtain CT to evaluate. She has been doing well with Tylenol and topical creams, will use Lidoderm patch. CT reviewed by radiologist. No evidence of bony abnormality on thoracic or lumbar spine. They do note diffuse degenerative spurring. Note that the paraspinal soft tissues are unremarkable. Also notes diffuse interstitial lung disease. Discussed these findings with the patient. Encourage hydration. Advised frequent ambulation and gentle stretching. Advised against any heavy lifting while pain persists. She has an upcoming appointment this week with her primary care. She is given strict return precautions. All other questions and concerns were addressed and she is plan. She knows that this is not acutely fractured, she feels that she will be able to manage her pain well at home HPI General Mode of arrival: ambulatory . Date/Time Provider Initiated Documentation: 11/30/18 13:21 . Limitations to Documentation: no limitations . Information obtained by: patient and RN notes reviewed . History of Present Illness 78 year old F presents to the emergency department with the chief complaint of back pain, described as moderate, with intensity rated at 8. Quality is described as sharp, and is localized to the back (lumbar). Patient reports no radiation. Patient started experiencing this day(s) ( 10days) and it has been constant (worsening with time). Medication improves symptom(s), (tylenol and topical therapy) Movement worsens symptoms . Patient notes denies chest pain, cough, fever/chills, nausea/vomiting, rash and weakness. Patient did receive the following treatments prior to arrival, none Related Data Home Medications Medication Instructions Recorded Confirmed Lindsey Mag Zinc + D Tablet 1 ea PO DAILY 10/03/17 11/30/18 losartan 50 mg tablet 50 mg PO DAILY #90 tab-cap 04/02/18 11/30/18 simvastatin 20 mg tablet 20 mg PO DAILY #90 tab-cap 04/02/18 11/30/18 levothyroxine 25 mcg tablet 12.5 mcg PO DAILY #45 tab 11/05/18 11/30/18 levothyroxine 50 mcg tablet 50 mcg PO DAILY #90 tab-cap 11/05/18 11/30/18 acetaminophen [Tylenol] 650 mg PO Q4H PRN PRN #0 tab 11/21/18 11/30/18 metoprolol tartrate 12.5 mg PO BID #90 tab-cap 11/21/18 11/30/18 warfarin 2.5 mg PO DAILY 11/30/18 11/30/18 Previous Rx's Medication Instructions Recorded losartan 50 mg tablet 50 mg PO DAILY #90 tab-cap 04/02/18 simvastatin 20 mg tablet 20 mg PO DAILY #90 tab-cap 04/02/18 levothyroxine 25 mcg tablet 12.5 mcg PO DAILY #45 tab 11/05/18 levothyroxine 50 mcg tablet 50 mcg PO DAILY #90 tab-cap 11/05/18 acetaminophen [Tylenol] 650 mg PO Q4H PRN PRN #0 tab 11/21/18 metoprolol tartrate 12.5 mg PO BID #90 tab-cap 11/21/18 Allergies Allergy/AdvReac Type Severity Reaction Status Date / Time No Known Allergies Allergy Unverified 11/30/18 13:13 General Stated Complaint: Nk/Back Pain THELMA: 4 Review of Systems Constitutional Reports as per HPI, Denies chills, Denies fatigue, Denies fever(s), Denies headache(s) and Denies weakness ENT Denies headache(s) Cardiovascular Reports as per HPI, Denies chest pain and Denies dyspnea Respiratory Reports as per HPI, Denies cough and Denies dyspnea Gastrointestinal Reports as per HPI, Reports constipation and Denies fecal incontinence Genitourinary Denies urinary incontinence Musculoskeletal Reports as per HPI, Denies abnormal gait, Denies back pain and Denies tingling Integumentary/Breasts Reports as per HPI and Denies rash Neurologic Reports as per HPI, Denies abnormal gait, Denies headache(s), Denies focal weakness, Denies radicular pain, Denies sensory deficit, Denies tingling and Denies weakness Endocrine Denies fatigue [facility] Medical History PAF (paroxysmal atrial fibrillation) (Chronic 2016) Chronic anticoagulation (Chronic) Hypertension (Chronic) Chronic kidney disease (Chronic) Hyperlipidemia (Chronic) Hypothyroidism (Chronic 03/05/17) LBBB (left bundle branch block) (Chronic 11/29/15) Osteoporosis (Chronic) Sensorineural hearing loss (SNHL), bilateral (Chronic) Sigmoid diverticulosis (Chronic) Squamous cell carcinoma of neck (Inactive ~09/2015) Surgical History Cholecystectomy (Inactive ~1988) Colonoscopy - MAC (Inactive ~2009) Dilation and curettage (Inactive ~1977) Hysterectomy, Laproscopic (Inactive ~1978) Ligation of fallopian tube (Inactive ~1967) Skin Cancer Removal (Inactive 12/15/15) Social History (Reviewed 11/30/18 @ 13:44 by AMY Stockton Smoking/Tobacco Use Status: Never Second Hand Exposure: Yes (Prior to 2007) Alcohol Intake: current Alcohol Intake frequency: a few times a month Drug use: Never Substance use type: does not use Caregiver/Support person: No Household members: none Communication Needs: Hard of Hearing Pets and animals: No Sexually active: No Do you think of yourself as: straight/heterosexual Current gender identity: female What is your relationship status?: How often do you talk on the phone with friends or family?: three or more times per week How often do you get together with friends or relatives?: three or more times per week How often do you attend yazidi or baptist services?: 4 or more times per year Do you belong to any clubs or organized social groups?: no Panel score (0-1 are the most socially isolated patients): 2 What type of physical activity do you participate in: walking and swimming Duration: 45-60 minutes/day Frequency: 5-6 times per week Malia/Anabaptism: Latter-Day Special malia needs: No Seatbelt use: always Drive intox or ride w/intox electric truck driver: No Do you feel safe at home: Yes Do you feel safe in your relationship?: Yes Female Reproductive History Menstrual Menopause type: surgical History History 4 Para 4 Hx # Term Pregnancies Multiple births Hx # Pregnancies Ectopic pregnancies AB induced Hx Number of Living Children 4 AB spontaneous Exam Const General: cooperative, healthy appearing, comfortable, no acute distress and well developed Nutritional Appearance: average body habitus and well nourished Orientation: alert and awake HENMT Head: normal to inspection Mouth: moist mucous membranes Resp Effort & Inspection: normal respiratory effort, able to speak in complete sentences and no respiratory distress Auscultation: clear to auscultation bilaterally, no rales, no rhonchi and no wheezes Cardio Rate: regular rate Rhythm: regular rhythm Heart Sounds: S1 normal and S2 normal Back/Spine/Pelvis Back: no CVA tenderness Cervical Spine: normal cervical lordosis and cervical ROM normal Thoracic/Lumbar Spine: No thoraco-lumbar ROM normal (limited forward flexion, pain in lumbar spine), straight leg raise negative bilaterally, No mass, pain with thoraco-lumbar ROM, No paraspinal tenderness, No thoraco-lumbar spasm, No thoracic spinal tenderness and lumbar spinal tenderness Pelvis: no pain with anterior-posterior compression Sacroiliac joints: bilaterally nontender Skin General skin exam: no rashes or lesions noted Trauma: no lacerations or abrasions Neuro General: alert, awake and oriented x3 Cognition: normal cognition Speech: speech normal Gait: normal gait Motor: muscle tone normal throughout, strength 5/5 throughout, no movement abnormalities noted and no fasciculations Sensory Exam: no sensory deficits noted (no saddle paresthesias) DTR's: Rt Patellar: 2+, Lt Patellar: 2+, Rt Ankle: 2+ and Lt Ankle: 2+ Extrem General: normal to inspection, full ROM, normal capillary refill, no pedal edema, no calf tenderness, normal gait and no calf tenderness bilaterally Psych Appearance: grossly normal and well kempt Mental Status: mental status grossly normal Speech and Movement: speech and movement normal Course Vital Signs Temperature 37.0 C 11/30/18 13:11 Pulse 66 11/30/18 13:11 Respiratory Rate 15 11/30/18 13:11 Blood Pressure 132/88 11/30/18 13:11 Pulse Oximetry 95 11/30/18 13:11 Temperature 37.0 C 11/30/18 13:11 Temperature Source Skin 11/30/18 13:11 Pulse 66 11/30/18 13:11 Respiratory Rate 15 11/30/18 13:11 Respiratory Effort 11/30/18 13:15 Blood Pressure 132/88 11/30/18 13:11 Blood Pressure Position Sitting 11/30/18 13:11 Pulse Oximetry 95 11/30/18 13:11 Oxygen Delivery Method Room Air 11/30/18 13:11 Oxygen Flow Rate 0 11/30/18 13:11 Pain Level 8 11/30/18 13:11
--- NOTE | 2018-11-30 15:02 | DI.VRAD_ITS ---
EXAM: CT Thoracic Spine Without Contrast EXAM DATE/TIME: 11/30/2018 1:34 PM CLINICAL HISTORY: 78 years old, female; Signs and symptoms; Other: Fall; Additional info: Fall on 11/21/18 upper and lower back pain TECHNIQUE: Imaging protocol: Axial computed tomography images of the thoracic spine without intravenous contrast. Coronal reformatted images were created and reviewed. Radiation optimization: All CT scans at this facility use at least one of these dose optimization techniques: automated exposure control; mA and/or kV adjustment per patient size (includes targeted exams where dose is matched to clinical indication); or iterative reconstruction. COMPARISON: [facility]AC[facility] RECONSTRUCTIONS 01/12/2018 2:22 PM FINDINGS: Diffuse degenerative spurring. No evidence of acute fracture. Paraspinal soft tissues unremarkable. Diffuse interstitial lung scarring. No pleural effusion. IMPRESSION: No evidence of acute bony abnormality. EXAM: CT Lumbar Spine Without Contrast EXAM DATE/TIME: 11/30/2018 1:34 PM CLINICAL HISTORY: 78 years old, female; Signs and symptoms; Other: Fall; Additional info: Fall on 11/21/18 upper and lower back pain TECHNIQUE: Imaging protocol: Axial computed tomography images of the lumbar spine without intravenous contrast. Coronal reformatted images were created and reviewed. Radiation optimization: All CT scans at this facility use at least one of these dose optimization techniques: automated exposure control; mA and/or kV adjustment per patient size (includes targeted exams where dose is matched to clinical indication); or iterative reconstruction. COMPARISON: [facility] RECONSTRU[facility] 01/12/2018 2:22 PM FINDINGS: Diffuse degenerative spurring. No evidence of acute fracture. Paraspinal soft tissues unremarkable. IMPRESSION: No evidence of acute bony abnormality. Dictated and Authenticated by: Julian Salgado MD. Ordering:PEGGY Hester MD
[2018-11-30 15:16] VITALS: BP 132/70; PULSE 66; RESP 15; TEMP 37; O2SAT 95
== END 2018-11-30 15:16 | disposition home or self-care (01) ==
PROVIDERS: Emergency Provider Physician Assistant; PCP Nurse Practitioner Family
DX: M54.5 Low back pain (principal); I12.9 Hypertensive chronic kidney disease with stage 1 through stage 4 chronic kidney disease, or unspecified chronic kidney disease; N18.9 Chronic kidney disease, unspecified; W01.0XXA Fall on same level from slipping, tripping and stumbling without subsequent striking against object, initial encounter; I48.0 Paroxysmal atrial fibrillation; Z79.01 Long term (current) use of anticoagulants
CPT/HCPCS: 99284; 72128; 72131

== ENCOUNTER 2018-12-08 09:09 | Outpatient (CLI) | payer MEDICARE, OTHER, SELFPAY ==
[2018-12-08 10:31] LABS: INR 1.6 (0.9-1.1); Prothrombin Time 16.1 sec (9.3-11.0)
== END 2018-12-08 09:29 ==
PROVIDERS: PCP Nurse Practitioner Family; Visit Provider Radiology Radiation Oncology
DX: I48.0 Paroxysmal atrial fibrillation (principal); Z79.01 Long term (current) use of anticoagulants
CPT/HCPCS: 36415; 85610

== ENCOUNTER 2018-12-31 12:38 | Outpatient (CLI) | payer MEDICARE, OTHER, SELFPAY ==
[2018-12-31 13:18] LABS: INR 2.1 (0.9-1.1); Prothrombin Time 20.7 sec (9.3-11.0)
== END 2018-12-31 12:58 ==
PROVIDERS: PCP Nurse Practitioner Family; Referring Provider Radiology Radiation Oncology; Visit Provider Nurse Practitioner Family
DX: R00.1 Bradycardia, unspecified (principal); I48.0 Paroxysmal atrial fibrillation
CPT/HCPCS: 36415; 93228; 85610

== ENCOUNTER 2019-01-16 12:04 | Outpatient (CLI) | payer MEDICARE, OTHER, SELFPAY ==
[2019-01-16 12:42] LABS: INR 1.6 (0.9-1.1); Prothrombin Time 15.9 sec (9.3-11.0)
== END 2019-01-16 12:24 ==
PROVIDERS: PCP Nurse Practitioner Family; Visit Provider Nurse Practitioner Family
DX: I48.0 Paroxysmal atrial fibrillation (principal); Z79.01 Long term (current) use of anticoagulants
CPT/HCPCS: 36415; 85610

== ENCOUNTER 2019-01-26 13:45 | Outpatient (CLI) | payer MEDICARE, OTHER, SELFPAY ==
[2019-01-26 14:22] LABS: Prothrombin Time 20.5 sec (9.3-11.0)
== END 2019-01-26 14:05 ==
PROVIDERS: PCP Nurse Practitioner Family; Visit Provider Nurse Practitioner Family
DX: I48.0 Paroxysmal atrial fibrillation (principal); Z79.01 Long term (current) use of anticoagulants
CPT/HCPCS: 36415; 85610

== ENCOUNTER 2019-02-03 13:05 | Outpatient (CLI) | payer MEDICARE, OTHER, SELFPAY ==
[2019-02-03 13:38] LABS: INR 1.8 (0.9-1.1); Prothrombin Time 17.9 sec (9.3-11.0)
== END 2019-02-03 13:25 ==
PROVIDERS: PCP Nurse Practitioner Family; Visit Provider Nurse Practitioner Family
DX: I48.0 Paroxysmal atrial fibrillation (principal); Z79.01 Long term (current) use of anticoagulants
CPT/HCPCS: 36415; 85610

== ENCOUNTER 2019-02-17 07:04 | Outpatient (CLI) | payer MEDICARE, OTHER, SELFPAY ==
[2019-02-17 08:13] LABS: INR 2.1 (0.9-1.1); Prothrombin Time 21.4 sec (9.3-11.0)
== END 2019-02-17 07:24 ==
LOC: LBN 07:06 → LBO 07:33
PROVIDERS: PCP Nurse Practitioner Family; Visit Provider Nurse Practitioner Family
DX: I48.0 Paroxysmal atrial fibrillation (principal); Z79.01 Long term (current) use of anticoagulants
CPT/HCPCS: 36415; 85610

== ENCOUNTER 2019-03-03 12:49 | Outpatient (CLI) | payer MEDICARE, OTHER, SELFPAY ==
[2019-03-03 14:13] LABS: INR 2.1 (0.9-1.1); Prothrombin Time 21.2 sec (9.3-11.0)
== END 2019-03-03 13:09 ==
PROVIDERS: PCP Nurse Practitioner Family; Visit Provider Nurse Practitioner Family
DX: I48.0 Paroxysmal atrial fibrillation (principal); Z79.01 Long term (current) use of anticoagulants
CPT/HCPCS: 36415; 85610

== ENCOUNTER 2019-04-02 12:15 | Outpatient (CLI) | payer MEDICARE, OTHER, SELFPAY ==
[2019-04-02 12:59] LABS: INR 1.7 (0.9-1.1); Prothrombin Time 16.8 sec (9.3-11.0)
== END 2019-04-02 12:35 ==
PROVIDERS: PCP Nurse Practitioner Family; Visit Provider Nurse Practitioner Family
DX: I48.0 Paroxysmal atrial fibrillation (principal); Z79.01 Long term (current) use of anticoagulants
CPT/HCPCS: 36415; 85610

== ENCOUNTER 2019-04-17 15:14 | Outpatient (CLI) | payer MEDICARE, OTHER, SELFPAY ==
[2019-04-17 15:56] LABS: INR 1.7 (0.9-1.1); Prothrombin Time 17.2 sec (9.3-11.0)
== END 2019-04-17 15:34 ==
PROVIDERS: PCP Nurse Practitioner Family; Visit Provider Nurse Practitioner Family
DX: I48.0 Paroxysmal atrial fibrillation (principal); Z79.01 Long term (current) use of anticoagulants
CPT/HCPCS: 36415; 85610

== ENCOUNTER 2019-04-24 13:31 | Outpatient (CLI) | payer MEDICARE, OTHER, SELFPAY ==
[2019-04-24 14:42] LABS: INR 2.3 (0.9-1.1); Prothrombin Time 22.2 sec (9.3-11.0)
[2019-04-24 15:02] LABS: TSH 3.56 uIU/mL (0.36-3.74)
== END 2019-04-24 13:51 ==
PROVIDERS: PCP Nurse Practitioner Family; Visit Provider Radiology Radiation Oncology
DX: R53.83 Other fatigue (principal); I48.0 Paroxysmal atrial fibrillation; Z79.01 Long term (current) use of anticoagulants
CPT/HCPCS: 36415; 84443; 85610

== ENCOUNTER 2019-11-20 21:36 | Outpatient (REF) | payer MEDICARE, OTHER, SELFPAY | END 2019-11-20 21:56 | LOC: LBN 21:36 | PROVIDERS: PCP Nurse Practitioner Family; Visit Provider Nurse Practitioner Family | DX: N39.0 Urinary tract infection, site not specified (principal) | CPT/HCPCS: 87086 ==

== ENCOUNTER 2020-04-11 02:07 | Outpatient (CLI) | payer MEDICARE, OTHER, SELFPAY ==
[2020-04-11 12:46] LABS: INR 2.6 (0.9-1.1); Prothrombin Time 25.7 sec (9.3-11.0)
== END 2020-04-11 02:27 ==
PROVIDERS: PCP Nurse Practitioner Family; Visit Provider Nurse Practitioner Family
DX: I48.91 Unspecified atrial fibrillation (principal); Z79.01 Long term (current) use of anticoagulants
CPT/HCPCS: 36415; 85610

== ENCOUNTER 2020-10-05 03:03 | Outpatient (CLI) | payer MEDICARE, OTHER, SELFPAY ==
[2020-10-05 14:05] LABS: INR 2.6 (0.9-1.1); Prothrombin Time 25.9 sec (9.3-11.0)
== END 2020-10-05 03:04 | disposition home or self-care (01) ==
LOC: LOS 03:03
PROVIDERS: PCP Nurse Practitioner Family; Visit Provider Nurse Practitioner Family
DX: I48.91 Unspecified atrial fibrillation (principal); Z79.01 Long term (current) use of anticoagulants
CPT/HCPCS: 36415; 85610

== ENCOUNTER 2020-10-24 03:12 | Outpatient (CLI) | payer MEDICARE, OTHER, SELFPAY ==
[2020-10-24 11:35] LABS: INR 2.5 (0.9-1.1); Prothrombin Time 24.8 sec (9.3-11.0)
== END 2020-10-24 03:13 | disposition home or self-care (01) ==
LOC: LOS 03:12
PROVIDERS: PCP Nurse Practitioner Family; Visit Provider Internal Medicine Hematology & Oncology
DX: R30.0 Dysuria (principal); I48.91 Unspecified atrial fibrillation; Z79.01 Long term (current) use of anticoagulants
CPT/HCPCS: 36415; 87077; 85610; 87086; 87186

== ENCOUNTER 2020-11-04 03:09 | Outpatient (CLI) | payer MEDICARE, OTHER, SELFPAY ==
[2020-11-04 08:24] LABS: HCT 38.4 % (36.0-46.0); HGB 12.6 g/dL (11.2-15.7); MCH 30.6 pg (27.0-33.0); MCHC 32.8 % (32.0-36.0); MCV 93.2 fL (80-95); MPV 9.5 fL (8.0-11.0); Platelet Count 283 10^3/uL (130-400); RBC 4.12 10^6/uL (3.93-5.22); RDW 12.5 % (11.7-14.6); RDW-SD 42.6 fL; WBC 6.02 10^3/uL (4.4-10.8)
[2020-11-04 08:47] LABS: Hemoglobin A1C 5.6 % (<5.7)
[2020-11-04 09:26] LABS: ALT 26 U/L (14-59); AST 20 U/L (15-37); Albumin 3.6 g/dL (3.4-5.0); Alkaline Phosphatase 65 U/L (46-116); Anion Gap 7.5 mmol/L (3-11); BUN 16 mg/dL (7-18); Bilirubin, Total 0.4 mg/dL (0.2-1.0); CO2 29.5 mmol/L (21.0-32.0); CREATININE 1.1 mg/dL (0.55-1.02); Calculated LDL 105 mg/dL (<100); Chloride 106 mmol/L (98-107); Cholesterol 171 mg/dL (<200); Estimated GFR 47.55 (mL/min/1.73m2); Glucose 84 mg/dL (74-106); HDL Cholesterol 49 mg/dL (40-60); Potassium 4.6 mmol/L (3.5-5.1); Sodium 143 mmol/L (136-145); Total Protein 6.8 g/dL (6.4-8.2); Triglyceride 88 mg/dL (<150)
[2020-11-07 10:52] LABS: FREE T4 1.16 ng/dL (0.76-1.46); TSH 3.34 uIU/mL (0.36-3.74)
== END 2020-11-04 03:10 | disposition home or self-care (01) ==
LOC: LBO 03:09
PROVIDERS: PCP Nurse Practitioner Family; Visit Provider Nurse Practitioner Family
DX: I10 Essential (primary) hypertension (principal); E03.9 Hypothyroidism, unspecified; R73.01 Impaired fasting glucose; N18.9 Chronic kidney disease, unspecified; I48.0 Paroxysmal atrial fibrillation
CPT/HCPCS: 36415; 80053; 80061; 85027; 83036; 84439; 84443

== ENCOUNTER 2020-12-07 02:01 | Outpatient (CLI) | payer MEDICARE, OTHER, SELFPAY ==
[2020-12-07 12:51] LABS: INR 2.9 (0.9-1.1); Prothrombin Time 28.6 sec (9.3-11.0)
== END 2020-12-07 02:02 | disposition home or self-care (01) ==
LOC: LOS 02:02
PROVIDERS: PCP Nurse Practitioner Family; Visit Provider Nurse Practitioner Family
DX: I48.91 Unspecified atrial fibrillation (principal); Z79.01 Long term (current) use of anticoagulants
CPT/HCPCS: 36415; 85610

== ENCOUNTER 2021-02-27 08:18 | Outpatient (CLI) | payer MEDICARE, OTHER, SELFPAY ==
[2021-02-27 13:13] LABS: INR 2.8 (0.9-1.1); Prothrombin Time 27.8 sec (9.3-11.0)
== END 2021-02-27 08:19 | disposition home or self-care (01) ==
LOC: LOS 08:30
PROVIDERS: PCP Nurse Practitioner Family; Visit Provider Nurse Practitioner Family
DX: I48.0 Paroxysmal atrial fibrillation (principal)
CPT/HCPCS: 36415; 85610

== ENCOUNTER 2021-04-07 17:28 | Outpatient (REF) | payer MEDICARE, OTHER, SELFPAY | END 2021-04-07 17:29 | disposition home or self-care (01) | LOC: LBN 17:28 | PROVIDERS: PCP Nurse Practitioner Family; Visit Provider Physician Assistant Medical | DX: R30.0 Dysuria (principal) | CPT/HCPCS: 87086 ==

== ENCOUNTER 2021-10-24 01:54 | Outpatient (CLI) | payer MEDICARE, OTHER, SELFPAY ==
[2021-10-24 10:06] LABS: ALT 24 U/L (14-59); Anion Gap 9.1 mmol/L (3-11); BUN 26 mg/dL (7-18); CO2 27.9 mmol/L (21.0-32.0); CREATININE 1.1 mg/dL (0.55-1.02); Calcium 8.6 mg/dL (8.5-10.1); Calculated LDL 85 mg/dL (<100); Chloride 105 mmol/L (98-107); Cholesterol 152 mg/dL (<200); Estimated GFR 47.43 (mL/min/1.73m2); Glucose 73 mg/dL (74-106); HDL Cholesterol 55 mg/dL (40-60); Potassium 4.2 mmol/L (3.5-5.1); Sodium 142 mmol/L (136-145); TSH (W/Ref FT4) 3.78 uIU/mL (0.36-3.74); Triglyceride 63 mg/dL (<150)
[2021-10-24 10:23] LABS: FREE T4 1.24 ng/dL (0.76-1.46)
== END 2021-10-24 01:55 | disposition home or self-care (01) ==
LOC: LBO 01:54
PROVIDERS: Family Medicine; PCP Nurse Practitioner Family; Visit Provider Family Medicine
DX: E03.9 Hypothyroidism, unspecified (principal); E78.5 Hyperlipidemia, unspecified
CPT/HCPCS: 36415; 80048; 80061; 84439; 84443; 84460

== ENCOUNTER 2022-12-20 03:02 | Outpatient (CLI) | payer MEDICARE, OTHER, SELFPAY ==
[2022-12-20 11:31] LABS: HCT 37.1 % (36.0-46.0); HGB 12.3 g/dL (11.2-15.7); MCHC 33.2 % (32.0-36.0); MCV 91 fL (80-95); Platelet Count 294 10^3/uL (130-400); RDW 12.7 % (11.7-14.6); RDW-SD 42.1 fL; WBC 6.33 10^3/uL (4.4-10.8)
[2022-12-20 11:52] LABS: Prothrombin Time 19.8 sec (9.3-11.0)
[2022-12-20 12:19] LABS: ALT 19 U/L (14-59); AST 20 U/L (15-37); Albumin 3.7 g/dL (3.4-5.0); Alkaline Phosphatase 68 U/L (46-116); Anion Gap 10.9 mmol/L (3-11); BUN 18 mg/dL (7-18); Bilirubin, Total 0.6 mg/dL (0.2-1.0); CO2 23.1 mmol/L (21.0-32.0); Calcium 8.7 mg/dL (8.5-10.1); Chloride 108 mmol/L (98-107); Estimated GFR 55.55 (mL/min/1.73m2); Glucose 96 mg/dL (74-106); Sodium 142 mmol/L (136-145); TSH (W/Ref FT4) 4.46 uIU/mL (0.36-3.74); Total Protein 7.5 g/dL (6.4-8.2)
[2022-12-20 12:37] LABS: FREE T4 1.22 ng/dL (0.76-1.46)
== END 2022-12-20 03:03 | disposition home or self-care (01) ==
LOC: LBO 03:02
PROVIDERS: PCP Nurse Practitioner Family; Visit Provider Nurse Practitioner Family
DX: E03.9 Hypothyroidism, unspecified (principal); I48.0 Paroxysmal atrial fibrillation; Z79.01 Long term (current) use of anticoagulants; I10 Essential (primary) hypertension
CPT/HCPCS: 36415; 80053; 85027; 84439; 84443; 85610

== ENCOUNTER 2023-01-28 12:23 | Outpatient (REF) | payer MEDICARE, OTHER, SELFPAY ==
[2023-01-28 15:54] LABS: Abs Immature Grans 0.03 10^3/uL (0.0-0.06); Absolute Basophil Count 0.09 10^3/uL (0.0-0.2); Absolute Eosinophil Count 0.18 10^3/uL (0.0-0.7); Absolute Lymphocyte Count 1.37 10^3/uL (1.2-3.4); Absolute Monocyte Count 0.54 10^3/uL (0.1-0.8); Absolute Neutrophil Count 4.03 10^3/uL (1.2-6.7); Basophils % 1.4; Eosinophils % 2.9; HCT 39.6 % (36.0-46.0); HGB 13.1 g/dL (11.2-15.7); Immature Grans % 0.5; MCH 30.8 pg (27.0-33.0); MCHC 33.1 % (32.0-36.0); MCV 93 fL (80-95); MPV 10.8 fL (8.0-11.0); Monocytes % 8.7; Neutrophils % 64.5; Platelet Count 315 10^3/uL (130-400); RBC 4.25 10^6/uL (3.93-5.22); RDW 13.1 % (11.7-14.6); RDW-SD 44.5 fL; WBC 6.24 10^3/uL (4.4-10.8)
[2023-01-28 16:26] LABS: D-Dimer 361 ng/mlFEU (<500)
== END 2023-01-28 12:24 | disposition home or self-care (01) ==
LOC: LBN 12:23
PROVIDERS: PCP Nurse Practitioner Family; Visit Provider Nurse Practitioner Family
DX: M79.661 Pain in right lower leg (principal)
CPT/HCPCS: 85025; 85379

== ENCOUNTER 2023-03-25 04:25 | Outpatient (CLI) | payer MEDICARE, OTHER, SELFPAY ==
[2023-03-25 12:37] LABS: INR 2.6 (0.9-1.1); Prothrombin Time 25.8 sec (9.3-11.0)
[2023-03-25 12:49] LABS: TSH (W/Ref FT4) 3.84 uIU/mL (0.36-3.74)
[2023-03-25 13:10] LABS: FREE T4 1.17 ng/dL (0.76-1.46)
== END 2023-03-25 04:26 | disposition home or self-care (01) ==
LOC: LOS 04:26
PROVIDERS: PCP Nurse Practitioner Family; Visit Provider Nurse Practitioner Family
DX: E89.0 Postprocedural hypothyroidism (principal); I48.0 Paroxysmal atrial fibrillation
CPT/HCPCS: 36415; 84439; 84443; 85610

== ENCOUNTER → 2023-10-07 02:50 | Outpatient (CLI) | payer MEDICARE, OTHER, SELFPAY ==
--- NOTE | 2023-10-07 07:00 | DI.DEXA_ITS ---
Exam(s) XR DEXA BONE DENSITY W/WO HANNAH EXAM: XR DEXA BONE DENSITY W/WO HANNAH CLINICAL HISTORY: reassess osteoporosis, hx of osteoporosis,m81.0 TECHNIQUE: COMPARISON: Comparison examination is 09/10/2007. FINDINGS: Lateral Spine Image: Unremarkable. No compression deformities identified. Left hip: Total T-Score: -2.2. This compares to -1.5 on the prior examination. Total Z-Score: 0.2 T- and Z-scores: Findings are consistent with osteopenia. Lumbar Spine: Total T-Score: -2.4. This compares to -2.7 on the prior examination. Total Z-Score: 0.5 T- and Z-scores: Findings are consistent with osteopenia. There is osteoporosis seen in the L1 and L 2 vertebral bodies. Osteoporosis is seen in the left forearm with a total T-score of -3.2. IMPRESSION: Osteoporosis in the left forearm and the L1-L2 vertebral bodies.
== END ==
PROVIDERS: PCP Nurse Practitioner Family; Visit Provider Nurse Practitioner Family
DX: Z78.0 Asymptomatic menopausal state (principal); M81.0 Age-related osteoporosis without current pathological fracture; Z13.820 Encounter for screening for osteoporosis
CPT/HCPCS: 77080

== ENCOUNTER 2023-10-08 08:56 | Outpatient (CLI) | payer MEDICARE, OTHER, SELFPAY ==
[2023-10-08 09:29] LABS: INR 2.6 (0.9-1.1); Prothrombin Time 24.3 sec (9.1-11.1)
== END 2023-10-08 08:57 | disposition home or self-care (01) ==
PROVIDERS: PCP Nurse Practitioner Family; Visit Provider Nurse Practitioner Family
DX: I48.0 Paroxysmal atrial fibrillation (principal); Z79.01 Long term (current) use of anticoagulants
CPT/HCPCS: 36415; 85610

== ENCOUNTER 2023-11-18 10:55 | Outpatient (CLI) | payer MEDICARE, OTHER, SELFPAY ==
[2023-11-18 12:43] LABS: HCT 38.4 % (36.0-46.0); HGB 12.7 g/dL (11.2-15.7); MCH 30.1 pg (27.0-33.0); MCHC 33.1 % (32.0-36.0); MCV 91 fL (80-95); Platelet Count 312 10^3/uL (130-400); RBC 4.22 10^6/uL (3.93-5.22); RDW 12.9 % (11.7-14.6); RDW-SD 43.4 fL
[2023-11-18 12:55] LABS: INR 2.3 (0.9-1.1); Prothrombin Time 21.6 sec (9.1-11.1)
[2023-11-18 13:03] LABS: Anion Gap 9.7 mmol/L (3-11); BUN 20 mg/dL (7-18); CO2 26.3 mmol/L (21.0-32.0); CREATININE 1.2 mg/dL (0.55-1.02); Calcium 8.8 mg/dL (8.5-10.1); Chloride 105 mmol/L (98-107); Estimated GFR 44.36 (mL/min/1.73m2); Glucose 92 mg/dL (74-106); Potassium 4.1 mmol/L (3.5-5.1); Sodium 141 mmol/L (136-145); TSH (W/Ref FT4) 4.49 uIU/mL (0.36-3.74)
[2023-11-18 13:19] LABS: FREE T4 1.21 ng/dL (0.76-1.46)
[2023-11-18 18:47] LABS: Hepatitis C Ab w Rflx HCV PCR Negative (Negative)
[2023-11-18 18:52] LABS: HIV-1/2 Ag & Ab Screen Negative (Negative)
[2023-11-18 18:55] LABS: HBs Antibody, Quant <3.1 mIU/mL (See Note); Hep B Surface Ab Negative (See Note); Hepatitis B Core Antibody Negative (Negative); Hepatitis B Surface Antigen Negative (Negative)
== END 2023-11-18 10:56 | disposition home or self-care (01) ==
LOC: LOS 10:56
PROVIDERS: PCP Nurse Practitioner Family; Referring Provider Nurse Practitioner Family; Visit Provider Nurse Practitioner Family
DX: Z00.00 Encounter for general adult medical examination without abnormal findings (principal); I48.0 Paroxysmal atrial fibrillation; I10 Essential (primary) hypertension; Z79.01 Long term (current) use of anticoagulants; Z11.59 Encounter for screening for other viral diseases; Z11.4 Encounter for screening for human immunodeficiency virus [HIV]
CPT/HCPCS: 36415; 80048; 85027; 86704; 86706; 86803; 87340; 87389; 84439; 84443; 85610

== ENCOUNTER 2023-12-16 11:07 | Outpatient (CLI) | payer MEDICARE, OTHER, SELFPAY ==
[2023-12-16 12:02] LABS: Prothrombin Time 18.7 sec (9.1-11.1)
[2023-12-16 12:33] LABS: TSH (W/Ref FT4) 4.08 uIU/mL (0.36-3.74)
[2023-12-16 12:50] LABS: FREE T4 1.26 ng/dL (0.76-1.46)
== END 2023-12-16 11:08 | disposition home or self-care (01) ==
LOC: LBO 11:07
PROVIDERS: PCP Nurse Practitioner Family; Visit Provider Nurse Practitioner Family
DX: I48.0 Paroxysmal atrial fibrillation (principal); Z79.01 Long term (current) use of anticoagulants; E89.0 Postprocedural hypothyroidism
CPT/HCPCS: 36415; 84439; 84443; 85610

== ENCOUNTER 2023-12-26 12:49 | Emergency (ER) | payer MEDICARE, OTHER, SELFPAY ==
[2023-12-26 13:06] VITALS: BP 103/52; PULSE 75; RESP 18; TEMP 36.9; O2SAT 99
[2023-12-26 13:10] VITALS: BP 103/52; PULSE 75; RESP 18; TEMP 36.9; O2SAT 99
--- NOTE | 2023-12-26 13:21 | ED.GENADUL_ITS ---
Discharge Plan Disposition Patient Disposition: Home Condition: Stable Discharge Details Clinical Impression: Chronic ulcer of left lower leg Primary Care Provider: Quin Angel ED Provider: Rajinder Boykin Home Meds and New Rx's Prescriptions: Continued valsartan 320 mg tablet 320 mg PO DAILY Qty: 90 3RF sulfamethoxazole-trimethoprim [Bactrim DS] 800-160 mg tablet 1 tab PO BID Qty: 10 0RF LINDSEY MAG ZINC + D TABLET 1 EACH tablet 2 each PO DAILY simvastatin 20 mg tablet 20 mg PO DAILY Qty: 90 3RF warfarin 5 mg tablet 5 mg PO DIRECTED Qty: 90 3RF Protocol: Dose Management Condition: Saturday Dose/Route: 2.5 mg Instruction: 0.5 x 5 mg tablets Condition: Saturday Dose/Route: 0 mg Instruction: 0 tablets Condition: Saturday Dose/Route: 0 mg Instruction: 0 tablets Condition: Saturday Dose/Route: 0 mg Instruction: 0 tablets Condition: Dose/Route: 0 mg Instruction: 0 tablets Condition: Saturday Dose/Route: Hold Instruction: No doses Condition: Saturday Dose/Route: Hold Instruction: No doses Protocol Text: Adjustment Start Date: Saturday12/27/23 INR Value: 4.4 INR Date: 12/27/23 Recheck Date: 12/30/23 levothyroxine 88 mcg tablet 88 mcg PO DAILY Qty: 90 0RF Discharge Instructions Instructions: Mupirocin, Wound Care ED Additional Instructions: You were seen in the emergency department for your chronic leg ulcer. This is a chronic nonhealing leg wound has been ongoing for months. I believe you need to see wound care-please have your primary care provider refer you to a wound care clinic in the area, you may need to travel to this clinic. Otherwise we have upgraded from topical bacitracin to mupirocin, you may need specialized dressings like Xeroform gauze which has antibiotics impregnated in it, you have no signs of spreading redness or red streaking up the leg, return to the ER for such, return for fever. Please continue your antibiotics as directed and follow-up with your planned appointment tomorrow. Referrals: Quin Angel, LASHONDA [Primary Care Provider] - Discharge Data Discharge Date/Time-TO BE ENTERED AT DEPARTURE: 12/26/23 14:20 HPI General Date/Time Provider Initiated Documentation: 12/26/23 13:21 . HPI Narrative: 83 year-old female presents to ED today by POV/ambulating with a chief complaint of cellulitis to left calf, treated on and off for months, with onset acute worsening over the past week- switched to Bactrim on Saturday. Quality described as painful at night, no radiation to fever, lymphadenitis, nausea/vomiting, numbness/tingling, large swelling, purulent drainage. Severity is described as moderate. Palliating factors include nothing specific. Provoking factors include nothing specific- denies t2DM. Events leading up to the incident/Associated Symptoms: Patient has not made appointments with wound care. Patient is anticoagulated on warfarin. Related Data Home Medications ?Medication ?Instructions ?Recorded ?Confirmed LINDSEY MAG ZINC + D TABLET 2 each PO DAILY 10/15/19 12/27/23 simvastatin 20 mg tablet 20 mg PO DAILY #90 tabs 10/10/23 12/27/23 warfarin 5 mg tablet 5 mg PO DIRECTED #90 tabs 10/10/23 12/27/23 valsartan 320 mg tablet 320 mg PO DAILY #90 tabs 10/21/23 12/27/23 levothyroxine 88 mcg tablet 88 mcg PO DAILY #90 tabs 12/20/23 12/27/23 sulfamethoxazole 800 1 tab PO BID #10 tabs 12/23/23 12/27/23 mg-trimethoprim 160 mg tablet (Bactrim DS) Previous Rx's ?Medication ?Instructions ?Recorded simvastatin 20 mg tablet 20 mg PO DAILY #90 tabs 10/10/23 warfarin 5 mg tablet 5 mg PO DIRECTED #90 tabs 10/10/23 valsartan 320 mg tablet 320 mg PO DAILY #90 tabs 10/21/23 levothyroxine 88 mcg tablet 88 mcg PO DAILY #90 tabs 12/20/23 sulfamethoxazole 800 1 tab PO BID #10 tabs 12/23/23 mg-trimethoprim 160 mg tablet (Bactrim DS) Allergies Allergy/AdvReac Type Severity Reaction Status Date / Time No Known Allergies Allergy Verified 12/27/23 13:08 General Stated Complaint: Cellulitis THELMA: 3 Review of Systems All systems reviewed & are unremarkable except as noted in HPI and below Exam Narrative Exam Narrative: GENERAL APPEARANCE: Well-nourished, non-toxic, awake and alert, atraumatic, no acute distress. SKIN: Warm, pink, dry, intact, 1 cm chronic ulceration of the left lateral di stal calf with granulation tissue present, no large abscess, no erythematous border, no purulent drainage, neurovascular intact distal. HEAD: Normocephalic, atraumatic, normal hair distribution for gender/age. EYES: Pupils PERRLA, EOMs intact without nystagmus, normal conjunctiva, no exudates on lids/lashes. ENT: Nares patent, no circumoral cyanosis, no facial swelling NECK: Supple, trachea midline, painless cervical ROM. LUNGS/CHEST: Non-labored respirations, normal A/P diameter, symmetrical expansion, no chest wall deformity HEART (CV/PV): No peripheral edema, no JVD. ABDOMEN: Soft, non-distended, no guarding. MSK: Normal ROM, no swelling/deformity to bilateral UEs or LEs, moving all extremities without weakness, no cyanosis, spine midline without tenderness, normal curvature. NEURO: Mental Status AAOx4 - alert to person, place, time, events No facial droop, no forehead involvement. Motor: No focal weakness - strength 5/5 in bilateral UEs and LEs, proximal and distal, symmetric. Sensory: sensation intact to light touch globally. Gait normal: patient ambulated without ataxia into ED room. PSYCH: euthymic, cooperative, pleasant, appropriate speech Course Vital Signs Vital signs: Vital Signs Temperature 36.9 C 12/26/23 13:06 Pulse 75 12/26/23 13:06 Respiratory Rate 18 12/26/23 13:06 Blood Pressure 103/52 L 12/26/23 13:06 Pulse Oximetry 99 12/26/23 13:06 Temperature 36.9 C 12/26/23 13:10 Temperature Source Skin 12/26/23 13:10 Pulse 75 12/26/23 13:10 Respiratory Rate 18 12/26/23 13:10 Respiratory Effort Normal, Non-Labored 12/26/23 13:11 Blood Pressure 103/52 L 12/26/23 13:10 Blood Pressure Position Sitting 12/26/23 13:10 Pulse Oximetry 99 12/26/23 13:10 Oxygen Delivery Method Room Air 12/26/23 13:10 Oxygen Flow Rate 0 12/26/23 13:10 Pain Level 8 12/26/23 13:10 Medical Decision Making This dictation utilizes [id number] dictation software and may contain unedited grammatical errors. 83 year-old female presents to ED today by POV/ambulating with a chief complaint of cellulitis to left calf, treated on and off for months, with onset acute worsening over the past week- switched to Bactrim on Saturday. Quality described as painful at night, no radiation to fever, lymphadenitis, nausea/vomiting, numb ness/tingling, large swelling, purulent drainage. Severity is described as moderate. Palliating factors include nothing specific. Provoking factors include nothing specific- denies t2DM. Events leading up to the incident/Associated Symptoms: Patient has not made appointments with wound care. Patients' medical history: Chronic ulcer of left lower leg, CKD, paroxysmal A-fib, hypertension, history of squamous cell carcinoma of skin. Family and social history: Contributory. Pertinent exam findings / vital signs include 1 cm chronic ulceration of the left lateral distal calf with granulation tissue present, no large abscess, no erythematous border, no purulent drainage, neurovascular intact distal. Differential / pathologies of concern include chronic ulcer, not severe cellulitis, no neurovascular compromise or abscess. Diagnostic studies of: -None. Interventions of: -Provided iodoform bandage, recommend referral to wound care as we do not have it at this facility, patient will contact her primary care provider, has an appointment tomorrow. ED Course/Assessment/Plan: 83-year-old female presents for chronic left leg ulceration needs to be seen by wound care, no emergent concerns of cellulitis or spreading infection, patient was educated on basic care for this wound and the need for referral to a talent acquisition specialist, denies diabetes history, strict return criteria for fever, redness spreading out from the area, large increase in swelling and purulent drainage. Findings not consistent with abscess, sepsis, severe cellulitis. Disposition of Chronic Ulcer of Left Lower Leg. Patient verbalized understanding of the plan and return to ED criteria and engaged in shared decision making. Medical Records Medical records reviewed: Yes I reviewed the patient's medical records. 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 Followed by [facility] Sensorineural hearing loss (SNHL), bilateral (Chronic) Sigmoid diverticulosis (Chronic) Medical History Basal cell carcinoma of left side of neck (~2022) Squamous cell carcinoma of neck (~09/2015) To right neck/clavicle area s/p excision and radiation. Followed by [facility] Surgical History Hx of cataract surgery S/P dilatation and curettage (~1977) S/P colonoscopy (~2009) History of bilateral tubal ligation (~1967) S/P laparoscopic hysterectomy (~1978) S/P cholecystectomy (~1988) Family History Mother , 97 Essential hypertension Father , 72 Alcohol abuse Sister No problems noted. Sister No problems noted. Brother No problems noted. Brother No problems noted. Brother Epilepsy Brother No problems noted. Son No problems noted. Son No problems noted. Son No problems noted. Daughter No problems noted. Maternal Grandfather , 29 No problems noted. Maternal Grandmother , 103 Chronic obstructive lung disease Essential hypertension Paternal Grandfather No problems noted. Paternal Grandmother , 72 No problems noted. Social History Smoking/Tobacco Use Status: Never Second Hand Exposure: Yes (Prior to 2007) Smoking risk assessment performed?: Yes Alcohol Intake: current Alcohol Intake frequency: holidays/special occasions only Drug use: Never Substance use type: does not use Adopted: No Caregiver/Support person: No Household members: none Housing: house Number of Children: 4 number of grandchildren: 8 Communication Needs: None Education Level: high school Do you need help understanding health information?: Rarely Pets and animals: No Sexually active: No Do you think of yourself as: straight/heterosexual Current gender identity: female What is your relationship status?: How often do you talk on the phone with friends or family?: three or more times per week How often do you get together with friends or relatives?: three or more times per week How often do you attend orthodox or roman catholic services?: 4 or more times per year Do you belong to any clubs or organized social groups?: no Panel score (0-1 are the most socially isolated patients): 2 What type of physical activity do you participate in: walking and swimming Duration: 30-45 minutes/day Frequency: 5-6 times per week Malia/Gnosticism: Druze Special malia needs: No Seatbelt use: sometimes Helmet use: No Drive intox or ride w/intox electric mule driver: No Do you feel safe at home: Yes Do you feel safe in your relationship?: Yes Female Reproductive History Menstrual Menopause type: surgical History History 4 Para 4 Hx # Term Pregnancies Multiple births Hx # Pregnancies Ectopic pregnancies AB induced Hx Number of Living Children 4 AB spontaneous PAWSS Have you Been Recently Intoxicated or Drunk Within the Last 30 days?: No Have you Ever Experienced Previous Episodes of Alcohol Withdrawal?: No Have you ever Experienced Withdrawal Seizures?: No Have you ever Experienced Delirium Tremens(DT)s?: No Have you ever undergone Alcohol Rehabilitation Treatment (i.e, inpt ot outpatient treatment programs)?: No Have you ever Experienced Blackouts?: No Have you ever Combined Alcohol with other Downers within the last 90 days?: No Have you ever Combined Alcohol with any other Substance of Abuse during the last 90 days?: No Positive Blood Alcohol level on Presentation? [PCS.BAL]: No Evidence of Increased Autonomic Activity (i.e. HR>120, tremor, sweating, agitation, nausea)?: No Result: 0
[2023-12-26] MEDS: Mupirocin 2% Oint. 22 GM TUBE TP (13:46)
--- NOTE | 2023-12-27 09:50 | NUR.NOTE ---
Nursing Note:Pt called asking what town the brand marketing specialist is located. Charlie Boykin was unsure and suggested that she speak with her primary care provider to facilitate the referral. Pt notified that we do not have access to the location of the specialist but her primary care provider should have that information for her. She has an appointment with her PCP at 1300 today.
== END 2023-12-26 14:20 | disposition home or self-care (01) ==
PROVIDERS: Emergency Provider Physician Assistant; PCP Nurse Practitioner Family
DX: I12.9 Hypertensive chronic kidney disease with stage 1 through stage 4 chronic kidney disease, or unspecified chronic kidney disease; N18.30 Chronic kidney disease, stage 3 unspecified; E78.5 Hyperlipidemia, unspecified; I48.0 Paroxysmal atrial fibrillation; Z79.01 Long term (current) use of anticoagulants
CPT/HCPCS: 99283

== ENCOUNTER 2024-01-20 19:02 | Outpatient (CLI) | payer MEDICARE, OTHER, SELFPAY ==
[2024-01-20 09:49] LABS: INR 2.5 (0.9-1.1); Prothrombin Time 23.3 sec (9.1-11.1)
== END 2024-01-20 19:03 | disposition home or self-care (01) ==
LOC: LBO 19:03
PROVIDERS: PCP Nurse Practitioner Family; Visit Provider Nurse Practitioner Family
DX: I48.0 Paroxysmal atrial fibrillation (principal); Z79.01 Long term (current) use of anticoagulants
CPT/HCPCS: 36415; 85610

== ENCOUNTER 2024-02-03 15:16 | Outpatient (CLI) | payer MEDICARE, OTHER, SELFPAY ==
[2024-02-03 09:18] LABS: INR 2.5 (0.9-1.1); Prothrombin Time 23.2 sec (9.1-11.1)
== END 2024-02-03 15:17 | disposition home or self-care (01) ==
LOC: LBO 02-12 15:16
PROVIDERS: PCP Nurse Practitioner Family; Visit Provider Nurse Practitioner Family
DX: I48.0 Paroxysmal atrial fibrillation (principal); Z79.01 Long term (current) use of anticoagulants
CPT/HCPCS: 36415; 85610

== ENCOUNTER 2024-03-09 14:57 | Outpatient (CLI) | payer MEDICARE, OTHER, SELFPAY ==
[2024-03-09 15:29] LABS: TSH (W/Ref FT4) 1.92 uIU/mL (0.36-3.74)
[2024-03-09 15:37] LABS: INR 2.2 (0.9-1.1)
== END 2024-03-09 14:58 | disposition home or self-care (01) ==
LOC: LBO 14:58
PROVIDERS: PCP Nurse Practitioner Family; Visit Provider Nurse Practitioner Family
DX: E89.0 Postprocedural hypothyroidism (principal); I48.0 Paroxysmal atrial fibrillation; Z79.01 Long term (current) use of anticoagulants
CPT/HCPCS: 36415; 84443; 85610

== ENCOUNTER 2024-04-03 15:13 | Outpatient (CLI) | payer MEDICARE, OTHER, SELFPAY ==
[2024-04-03 15:31] LABS: INR 1.8 (0.9-1.1); Prothrombin Time 17.2 sec (9.1-11.1)
== END 2024-04-03 15:14 | disposition home or self-care (01) ==
LOC: LBO 15:21
PROVIDERS: PCP Nurse Practitioner Family; Visit Provider Nurse Practitioner Family
DX: I48.0 Paroxysmal atrial fibrillation (principal); Z79.01 Long term (current) use of anticoagulants
CPT/HCPCS: 36415; 85610

== ENCOUNTER 2024-04-21 11:05 | Outpatient (CLI) | payer MEDICARE, OTHER, SELFPAY ==
[2024-04-21 11:05] LABS: INR 2.5 (0.9-1.1); Prothrombin Time 23.5 sec (9.1-11.1)
== END 2024-04-21 11:06 | disposition home or self-care (01) ==
LOC: LBO 11:05
PROVIDERS: PCP Nurse Practitioner Family; Visit Provider Nurse Practitioner Family
DX: I48.0 Paroxysmal atrial fibrillation (principal); Z79.01 Long term (current) use of anticoagulants
CPT/HCPCS: 36415; 85610

== ENCOUNTER 2024-10-27 03:51 | Outpatient (CLI) | payer MEDICARE, OTHER, SELFPAY ==
[2024-10-27 11:29] LABS: HCT 37.3 % (36.0-46.0); HGB 12.2 g/dL (11.2-15.7); MCH 30.6 pg (27.0-33.0); MCHC 32.7 % (32.0-36.0); MCV 94 fL (80-95); MPV 10.1 fL (8.0-11.0); Platelet Count 283 10^3/uL (130-400); RBC 3.99 10^6/uL (3.93-5.22); RDW 12.7 % (11.7-14.6); RDW-SD 43.9 fL; WBC 6.69 10^3/uL (4.4-10.8)
[2024-10-27 12:12] LABS: ALT 17 U/L (14-59); AST 18 U/L (15-37); Albumin 3.6 g/dL (3.4-5.0); Alkaline Phosphatase 71 U/L (46-116); BUN 27 mg/dL (7-18); Bilirubin, Total 0.4 mg/dL (0.2-1.0); CREATININE 1.3 mg/dL (0.55-1.02); Calcium 9.2 mg/dL (8.5-10.1); Chloride 104 mmol/L (98-107); Estimated GFR 40.05 (mL/min/1.73m2); Glucose 94 mg/dL (74-106); Potassium 3.9 mmol/L (3.5-5.1); Sodium 140 mmol/L (136-145); TSH (W/Ref FT4) 1.45 uIU/mL (0.36-3.74); Total Protein 7.4 g/dL (6.4-8.2)
[2024-10-27 21:23] LABS: Calculated LDL 56 mg/dL (<100); Cholesterol 146 mg/dL (<200); HDL Cholesterol 60 mg/dL (>or=50); Triglyceride 154 mg/dL (<150)
== END 2024-10-27 03:52 | disposition home or self-care (01) ==
LOC: LBO 03:51
PROVIDERS: PCP Nurse Practitioner Family; Visit Provider Nurse Practitioner Family
DX: I10 Essential (primary) hypertension (principal); Z00.00 Encounter for general adult medical examination without abnormal findings; I48.0 Paroxysmal atrial fibrillation; E78.5 Hyperlipidemia, unspecified; E89.0 Postprocedural hypothyroidism; N18.30 Chronic kidney disease, stage 3 unspecified
CPT/HCPCS: 36415; 80053; 80061; 85027; 84443

== ENCOUNTER 2025-01-07 14:34 | Outpatient (CLI) | payer MEDICARE, OTHER, SELFPAY ==
[2025-01-07 15:01] LABS: INR 3.0 (0.9-1.1); Prothrombin Time 28.3 sec (9.1-11.1)
== END 2025-01-07 14:35 | disposition home or self-care (01) ==
LOC: LBO 14:37
PROVIDERS: PCP Nurse Practitioner Family; Visit Provider Nurse Practitioner Family
DX: I48.0 Paroxysmal atrial fibrillation (principal)
CPT/HCPCS: 36415; 85610

== ENCOUNTER 2025-02-12 17:49 | Outpatient (CLI) | payer MEDICARE, OTHER, SELFPAY ==
[2025-02-12 17:00] LABS: INR 2.4 (0.9-1.1); Prothrombin Time 22.4 sec (9.1-11.1)
== END 2025-02-12 17:50 | disposition home or self-care (01) ==
LOC: LBO 17:50
PROVIDERS: PCP Nurse Practitioner Family; Visit Provider Nurse Practitioner Family
DX: I48.0 Paroxysmal atrial fibrillation (principal)
CPT/HCPCS: 36415; 85610

== ENCOUNTER 2025-03-08 20:05 | Outpatient (CLI) | payer MEDICARE, OTHER, SELFPAY ==
[2025-03-08 15:03] LABS: INR 2.2 (0.9-1.1); Prothrombin Time 21.3 sec (9.1-11.1)
== END 2025-03-08 20:06 | disposition home or self-care (01) ==
LOC: LBO 20:08
PROVIDERS: PCP Nurse Practitioner Family; Visit Provider Nurse Practitioner Family
DX: I48.0 Paroxysmal atrial fibrillation (principal)
CPT/HCPCS: 36415; 85610